=== PATIENT | male | born 1950 | race Caucasian/White ===

== ENCOUNTER 2019-02-18 00:23 | Day surgery (SDC) | payer MEDICARE ==
[~2019-02-18 00:23] MED LIST: ASPI81EC PO; CEPH500 PO; RXCLIN PO
[2019-02-19] MEDS ORDERED: [UNRECOGNIZED DRUG - OTHER] PO (15:40)
[2019-02-19] MEDS ORDERED: HYDR1TAB94 PO (15:40)
[2019-02-19] MEDS ORDERED: NAPR220 PO (15:41)
== END 2019-02-18 16:22 | disposition home or self-care (01) ==
LOC: ATC 00:23
DX: G06.2 Extradural and subdural abscess, unspecified (principal); A41.02 Sepsis due to Methicillin resistant Staphylococcus aureus; J18.9 Pneumonia, unspecified organism; D75.89 Other specified diseases of blood and blood-forming organs
CPT/HCPCS: 96365; J0878

== ENCOUNTER 2019-02-19 00:24 | Day surgery (SDC) | payer MEDICARE ==
[2019-02-19] MEDS ORDERED: [UNRECOGNIZED DRUG - OTHER] PO (15:40)
[2019-02-19] MEDS ORDERED: HYDR1TAB94 PO (15:40)
[2019-02-19] MEDS ORDERED: NAPR220 PO (15:41)
== END 2019-02-19 15:58 | disposition home or self-care (01) ==
LOC: ATC 00:24
DX: G06.2 Extradural and subdural abscess, unspecified (principal); B95.62 Methicillin resistant Staphylococcus aureus infection as the cause of diseases classified elsewhere; R78.81 Bacteremia; D75.89 Other specified diseases of blood and blood-forming organs
CPT/HCPCS: 96365; J0878

== ENCOUNTER 2019-02-20 02:00 | Day surgery (SDC) | payer MEDICARE ==
[~2019-02-20 02:00] MED LIST changes: +HYDR1TAB94 PO; +NAPR220 PO; +[UNRECOGNIZED DRUG - OTHER] PO
[2019-02-21] MEDS ORDERED: CUBICIN500 MG IV (15:46)
== END 2019-02-20 15:39 | disposition home or self-care (01) ==
LOC: ATC 02:00
DX: G06.2 Extradural and subdural abscess, unspecified (principal); B95.62 Methicillin resistant Staphylococcus aureus infection as the cause of diseases classified elsewhere; R78.81 Bacteremia; Z98.890 Other specified postprocedural states
CPT/HCPCS: 96365; J0878

== ENCOUNTER 2019-02-21 15:21 | Day surgery (SDC) | payer MEDICARE ==
[2019-02-21] MEDS ORDERED: CUBICIN500 MG IV (15:46)
== END 2019-02-21 16:16 | disposition home or self-care (01) ==
LOC: ATC 15:21
DX: G06.2 Extradural and subdural abscess, unspecified (principal); A41.02 Sepsis due to Methicillin resistant Staphylococcus aureus; J18.9 Pneumonia, unspecified organism; E87.1 Hypo-osmolality and hyponatremia; D75.89 Other specified diseases of blood and blood-forming organs
CPT/HCPCS: 96365; J0878

== ENCOUNTER 2019-02-22 08:44 | Day surgery (SDC) | payer MEDICARE ==
[~2019-02-22 08:44] MED LIST changes: +CUBICIN500 MG IV
== END 2019-02-22 10:21 | disposition home or self-care (01) ==
LOC: ATC 08:44
DX: G06.2 Extradural and subdural abscess, unspecified (principal); B95.62 Methicillin resistant Staphylococcus aureus infection as the cause of diseases classified elsewhere; R78.81 Bacteremia; Z79.899 Other long term (current) drug therapy
CPT/HCPCS: 96365; J0878

== ENCOUNTER 2019-02-23 00:11 | Day surgery (SDC) | payer MEDICARE | END 2019-02-23 14:48 | disposition home or self-care (01) | LOC: ATC 00:11 | DX: G06.2 Extradural and subdural abscess, unspecified (principal); A49.02 Methicillin resistant Staphylococcus aureus infection, unspecified site; D75.89 Other specified diseases of blood and blood-forming organs | CPT/HCPCS: 96365; J0878 ==

== ENCOUNTER 2019-02-24 00:22 | Day surgery (SDC) | payer MEDICARE ==
[2019-02-24 10:00] LABS: BASOPHILS PERCENT AUTO 2 % (0-2); EOSINOPHILS ABSOLUTE AUTO 0.44 K/mm3 (0.00-0.68); EOSINOPHILS PERCENT AUTO 7 % (0-6); Hematocrit 41.1 % (37.0-53.0); Hemoglobin 13.8 g/dL (13.5-17.5); IMMATURE GRAN ABSOLUTE AUTO 0.01 K/mm3 (0.00-0.10); IMMATURE GRAN PERCENT AUTO 0 % (0-1); LYMPHOCYTES ABSOLUTE AUTO 1.73 K/mm3 (0.84-5.20); LYMPHOCYTES PERCENT AUTO 29 % (21-46); MONOCYTES ABSOLUTE AUTO 0.55 K/mm3 (0.16-1.47); MONOCYTES PERCENT AUTO 9 % (4-13); Mean Corpuscular HGB 37.9 pg (26.0-34.0); Mean Corpuscular HGB Conc 33.6 g/dL (31.5-36.5); Mean Corpuscular Volume 113 fL (80-100); Mean Platelet Volume 10.4 fL (9.1-12.4); NEUTROPHILS ABSOLUTE AUTO 3.08 K/mm3 (1.96-9.15); NEUTROPHILS PERCENT AUTO 52 % (41-73); Platelet Count 271 K/mm3 (150-400); RDW Coefficient Variation 13.1 % (11.7-14.2); RDW Standard Deviation 55.1 fL (35.1-46.3); Red Blood Cell Count 3.64 M/mm3 (4.30-5.90); White Blood Cell Count 5.91 K/mm3 (4.00-11.30)
[2019-02-24 10:23] LABS: Alanine Aminotransfer (ALT/SGP 51 U/L (12-78); Albumin/Globulin Ratio 0.5 (0.8-1.8); Alk Phos 137 U/L (50-136); Anion Gap 5 mmol/L (6-16); Aspartate Aminotrans (AST/SGOT 56 U/L (12-37); Bilirubin, Total 0.8 mg/dL (0.1-1.0); Blood Urea Nitrogen 9 mg/dL (8-24); Bun/Creatinine Ratio 9.5 (12.0-20.0); CO2, Blood 25 mmol/L (21-32); CPK Creatine Kinase 30 U/L (39-308); Calcium, Blood 9.6 mg/dL (8.5-10.1); Chloride, Blood 111 mmol/L (98-108); Creatinine, Blood 0.95 mg/dL (0.60-1.20); Globulin, Blood 5.6 g/dL (2.2-4.0); Glomerular Filtration Rate >60 (60-); Glucose, Blood 117 mg/dL (70-99); Potassium, Blood 4.1 mmol/L (3.5-5.5); Sodium, Blood 141 mmol/L (136-145); Total Protein, Blood 8.6 g/dL (6.4-8.2)
== END 2019-02-24 10:16 | disposition home or self-care (01) ==
LOC: ATC 00:22
PROVIDERS: Internal Medicine Infectious Disease
DX: G06.2 Extradural and subdural abscess, unspecified (principal); B95.62 Methicillin resistant Staphylococcus aureus infection as the cause of diseases classified elsewhere; R78.81 Bacteremia; Z98.890 Other specified postprocedural states
CPT/HCPCS: 80053; 82550; 85025; 85651; 86140; 96365; J0878

== ENCOUNTER 2019-02-25 00:15 | Day surgery (SDC) | payer MEDICARE | END 2019-02-25 15:32 | disposition home or self-care (01) | LOC: ATC 00:15 | DX: G06.2 Extradural and subdural abscess, unspecified (principal); B95.62 Methicillin resistant Staphylococcus aureus infection as the cause of diseases classified elsewhere; R78.81 Bacteremia; Z79.899 Other long term (current) drug therapy | CPT/HCPCS: 96365; J0878 ==

== ENCOUNTER 2019-02-26 01:01 | Day surgery (SDC) | payer MEDICARE | END 2019-02-26 14:48 | disposition home or self-care (01) | LOC: ATC 01:01 | DX: G06.2 Extradural and subdural abscess, unspecified (principal); B95.62 Methicillin resistant Staphylococcus aureus infection as the cause of diseases classified elsewhere; R78.81 Bacteremia; E66.01 Morbid (severe) obesity due to excess calories; Z98.84 Bariatric surgery status | CPT/HCPCS: 96365; J0878 ==

== ENCOUNTER 2019-02-27 00:35 | Day surgery (SDC) | payer MEDICARE | END 2019-02-27 15:15 | disposition home or self-care (01) | LOC: ATC 00:35 | DX: G06.2 Extradural and subdural abscess, unspecified (principal); B95.62 Methicillin resistant Staphylococcus aureus infection as the cause of diseases classified elsewhere; R78.81 Bacteremia; E66.01 Morbid (severe) obesity due to excess calories; Z98.84 Bariatric surgery status | CPT/HCPCS: 96365; J0878 ==

== ENCOUNTER 2019-02-28 14:37 | Day surgery (SDC) | payer MEDICARE | END 2019-02-28 15:10 | disposition home or self-care (01) | LOC: ATC 14:37 | DX: G06.2 Extradural and subdural abscess, unspecified (principal); B95.62 Methicillin resistant Staphylococcus aureus infection as the cause of diseases classified elsewhere; R78.81 Bacteremia; E66.01 Morbid (severe) obesity due to excess calories; Z98.84 Bariatric surgery status | CPT/HCPCS: 96365; J0878 ==

== ENCOUNTER 2019-03-01 00:33 | Day surgery (SDC) | payer MEDICARE | END 2019-03-01 11:35 | disposition home or self-care (01) | LOC: ATC 00:33 | DX: G06.2 Extradural and subdural abscess, unspecified (principal); B95.62 Methicillin resistant Staphylococcus aureus infection as the cause of diseases classified elsewhere; R78.81 Bacteremia; E66.01 Morbid (severe) obesity due to excess calories; Z98.84 Bariatric surgery status | CPT/HCPCS: 96365; J0878 ==

== ENCOUNTER 2019-03-02 00:08 | Day surgery (SDC) | payer MEDICARE | END 2019-03-02 14:10 | disposition home or self-care (01) | LOC: ATC 00:08 | DX: G06.2 Extradural and subdural abscess, unspecified (principal); B95.62 Methicillin resistant Staphylococcus aureus infection as the cause of diseases classified elsewhere | CPT/HCPCS: 96365; J0878 ==

== ENCOUNTER 2019-03-03 00:21 | Day surgery (SDC) | payer MEDICARE ==
[2019-03-03 15:47] LABS: BASOPHILS ABSOLUTE AUTO 0.06 K/mm3 (0.00-0.23); BASOPHILS PERCENT AUTO 1 % (0-2); EOSINOPHILS ABSOLUTE AUTO 1.62 K/mm3 (0.00-0.68); EOSINOPHILS PERCENT AUTO 18 % (0-6); Hemoglobin 14.5 g/dL (13.5-17.5); IMMATURE GRAN ABSOLUTE AUTO 0.03 K/mm3 (0.00-0.10); IMMATURE GRAN PERCENT AUTO 0 % (0-1); LYMPHOCYTES ABSOLUTE AUTO 1.87 K/mm3 (0.84-5.20); LYMPHOCYTES PERCENT AUTO 21 % (21-46); MONOCYTES ABSOLUTE AUTO 0.69 K/mm3 (0.16-1.47); MONOCYTES PERCENT AUTO 8 % (4-13); Mean Corpuscular HGB 36.6 pg (26.0-34.0); Mean Corpuscular HGB Conc 33.7 g/dL (31.5-36.5); Mean Platelet Volume 10.9 fL (9.1-12.4); NEUTROPHILS PERCENT AUTO 52 % (41-73); Platelet Count 207 K/mm3 (150-400); RDW Coefficient Variation 13.2 % (11.7-14.2); RDW Standard Deviation 52.7 fL (35.1-46.3); Red Blood Cell Count 3.96 M/mm3 (4.30-5.90); White Blood Cell Count 8.97 K/mm3 (4.00-11.30)
[2019-03-03 15:54] LABS: Mean Corpuscular Volume 109 fL (80-100)
[2019-03-03 16:03] LABS: Alanine Aminotransfer (ALT/SGP 37 U/L (12-78); Albumin/Globulin Ratio 0.6 (0.8-1.8); Alk Phos 122 U/L (50-136); Anion Gap 6 mmol/L (6-16); Aspartate Aminotrans (AST/SGOT 39 U/L (12-37); Bilirubin, Total 0.5 mg/dL (0.1-1.0); Blood Urea Nitrogen 11 mg/dL (8-24); Bun/Creatinine Ratio 12.3 (12.0-20.0); CO2, Blood 24 mmol/L (21-32); CPK Creatine Kinase 37 U/L (39-308); Calcium, Blood 10.1 mg/dL (8.5-10.1); Chloride, Blood 107 mmol/L (98-108); Globulin, Blood 5.4 g/dL (2.2-4.0); Glomerular Filtration Rate >60 (60-); Glucose, Blood 186 mg/dL (70-99); Potassium, Blood 3.9 mmol/L (3.5-5.5); Sodium, Blood 137 mmol/L (136-145); Total Protein, Blood 8.4 g/dL (6.4-8.2)
== END 2019-03-03 15:00 | disposition home or self-care (01) ==
LOC: ATC 00:21
PROVIDERS: Internal Medicine Infectious Disease
DX: G06.2 Extradural and subdural abscess, unspecified (principal); B95.62 Methicillin resistant Staphylococcus aureus infection as the cause of diseases classified elsewhere; R78.81 Bacteremia; E66.01 Morbid (severe) obesity due to excess calories; Z98.84 Bariatric surgery status
CPT/HCPCS: 80053; 82550; 85025; 85651; 86140; 96365; J0878

== ENCOUNTER 2019-03-04 00:20 | Day surgery (SDC) | payer MEDICARE | END 2019-03-04 15:36 | disposition home or self-care (01) | LOC: ATC 00:20 | DX: G06.2 Extradural and subdural abscess, unspecified (principal); B95.62 Methicillin resistant Staphylococcus aureus infection as the cause of diseases classified elsewhere | CPT/HCPCS: 96365; J0878 ==

== ENCOUNTER 2019-03-05 00:25 | Day surgery (SDC) | payer MEDICARE | END 2019-03-05 10:16 | disposition home or self-care (01) | LOC: ATC 00:25 | DX: G06.2 Extradural and subdural abscess, unspecified (principal); B95.62 Methicillin resistant Staphylococcus aureus infection as the cause of diseases classified elsewhere; D75.89 Other specified diseases of blood and blood-forming organs | CPT/HCPCS: 96365; J0878 ==

== ENCOUNTER 2019-03-06 00:41 | Day surgery (SDC) | payer MEDICARE | END 2019-03-06 10:10 | disposition home or self-care (01) | LOC: ATC 00:41 | DX: G06.2 Extradural and subdural abscess, unspecified (principal); B95.62 Methicillin resistant Staphylococcus aureus infection as the cause of diseases classified elsewhere; R78.81 Bacteremia; Z79.899 Other long term (current) drug therapy; Z98.890 Other specified postprocedural states | CPT/HCPCS: 96365; J0878 ==

== ENCOUNTER 2019-03-07 09:32 | Day surgery (SDC) | payer MEDICARE | END 2019-03-07 09:53 | disposition home or self-care (01) | LOC: ATC 09:32 | DX: G06.2 Extradural and subdural abscess, unspecified (principal); R78.81 Bacteremia; B95.62 Methicillin resistant Staphylococcus aureus infection as the cause of diseases classified elsewhere; Z79.899 Other long term (current) drug therapy | CPT/HCPCS: 96365; J0878 ==

== ENCOUNTER 2019-03-08 09:19 | Day surgery (SDC) | payer MEDICARE | END 2019-03-08 09:48 | disposition home or self-care (01) | LOC: ATC 09:19 | DX: G06.2 Extradural and subdural abscess, unspecified (principal); B95.62 Methicillin resistant Staphylococcus aureus infection as the cause of diseases classified elsewhere; R78.81 Bacteremia; Z79.899 Other long term (current) drug therapy | CPT/HCPCS: 96365; J0878 ==

== ENCOUNTER 2019-03-09 00:11 | Day surgery (SDC) | payer MEDICARE | END 2019-03-09 10:10 | disposition home or self-care (01) | LOC: ATC 00:11 | DX: G06.2 Extradural and subdural abscess, unspecified (principal); B95.62 Methicillin resistant Staphylococcus aureus infection as the cause of diseases classified elsewhere; D75.89 Other specified diseases of blood and blood-forming organs | CPT/HCPCS: 96365; J0878 ==

== ENCOUNTER 2019-03-10 00:02 | Day surgery (SDC) | payer MEDICARE ==
[2019-03-10 08:49] LABS: BASOPHILS ABSOLUTE AUTO 0.11 K/mm3 (0.00-0.23); BASOPHILS PERCENT AUTO 1 % (0-2); EOSINOPHILS ABSOLUTE AUTO 0.57 K/mm3 (0.00-0.68); EOSINOPHILS PERCENT AUTO 8 % (0-6); Hematocrit 41.9 % (37.0-53.0); Hemoglobin 14.1 g/dL (13.5-17.5); IMMATURE GRAN ABSOLUTE AUTO 0.02 K/mm3 (0.00-0.10); IMMATURE GRAN PERCENT AUTO 0 % (0-1); LYMPHOCYTES ABSOLUTE AUTO 1.68 K/mm3 (0.84-5.20); LYMPHOCYTES PERCENT AUTO 22 % (21-46); MONOCYTES ABSOLUTE AUTO 0.71 K/mm3 (0.16-1.47); MONOCYTES PERCENT AUTO 9 % (4-13); Mean Corpuscular HGB 35.9 pg (26.0-34.0); Mean Corpuscular HGB Conc 33.7 g/dL (31.5-36.5); Mean Corpuscular Volume 107 fL (80-100); Mean Platelet Volume 10.7 fL (9.1-12.4); NEUTROPHILS ABSOLUTE AUTO 4.52 K/mm3 (1.96-9.15); NEUTROPHILS PERCENT AUTO 59 % (41-73); Platelet Count 197 K/mm3 (150-400); RDW Coefficient Variation 12.9 % (11.7-14.2); RDW Standard Deviation 51.3 fL (35.1-46.3); Red Blood Cell Count 3.93 M/mm3 (4.30-5.90); White Blood Cell Count 7.61 K/mm3 (4.00-11.30)
[2019-03-10 09:08] LABS: Alanine Aminotransfer (ALT/SGP 44 U/L (12-78); Albumin/Globulin Ratio 0.6 (0.8-1.8); Alk Phos 114 U/L (50-136); Anion Gap 5 mmol/L (6-16); Aspartate Aminotrans (AST/SGOT 50 U/L (12-37); Bilirubin, Total 0.6 mg/dL (0.1-1.0); Blood Urea Nitrogen 10 mg/dL (8-24); Bun/Creatinine Ratio 11.1 (12.0-20.0); C-REACTIVE PROTEIN, EXT RANGE 0.902 mg/dL (0.000-0.300); CO2, Blood 25 mmol/L (21-32); CPK Creatine Kinase 45 U/L (39-308); Calcium, Blood 9.8 mg/dL (8.5-10.1); Chloride, Blood 109 mmol/L (98-108); Globulin, Blood 5.3 g/dL (2.2-4.0); Glomerular Filtration Rate >60 (60-); Glucose, Blood 128 mg/dL (70-99); Sodium, Blood 139 mmol/L (136-145); Total Protein, Blood 8.3 g/dL (6.4-8.2)
== END 2019-03-10 09:21 | disposition home or self-care (01) ==
LOC: ATC 00:02
PROVIDERS: Internal Medicine Infectious Disease
DX: G06.2 Extradural and subdural abscess, unspecified (principal); B95.62 Methicillin resistant Staphylococcus aureus infection as the cause of diseases classified elsewhere; Z79.899 Other long term (current) drug therapy
CPT/HCPCS: 80053; 82550; 85025; 85651; 86140; 96365; J0878

== ENCOUNTER 2019-03-11 00:02 | Day surgery (SDC) | payer MEDICARE | END 2019-03-11 09:31 | disposition home or self-care (01) | LOC: ATC 00:02 | DX: G06.2 Extradural and subdural abscess, unspecified (principal); B95.62 Methicillin resistant Staphylococcus aureus infection as the cause of diseases classified elsewhere; D75.89 Other specified diseases of blood and blood-forming organs | CPT/HCPCS: 96365; J0878 ==

== ENCOUNTER 2019-03-12 00:01 | Day surgery (SDC) | payer MEDICARE | END 2019-03-12 08:32 | disposition home or self-care (01) | LOC: ATC 00:01 | DX: G06.2 Extradural and subdural abscess, unspecified (principal); B95.62 Methicillin resistant Staphylococcus aureus infection as the cause of diseases classified elsewhere; D75.89 Other specified diseases of blood and blood-forming organs | CPT/HCPCS: 96365; J0878 ==

== ENCOUNTER 2019-03-13 01:04 | Day surgery (SDC) | payer MEDICARE | END 2019-03-13 09:08 | disposition home or self-care (01) | LOC: ATC 01:04 | DX: G06.2 Extradural and subdural abscess, unspecified (principal); B95.62 Methicillin resistant Staphylococcus aureus infection as the cause of diseases classified elsewhere; R78.81 Bacteremia; Z79.899 Other long term (current) drug therapy | CPT/HCPCS: 96365; J0878 ==

== ENCOUNTER 2019-03-14 07:39 | Day surgery (SDC) | payer MEDICARE | END 2019-03-14 09:10 | disposition home or self-care (01) | LOC: ATC 07:39 | DX: G06.2 Extradural and subdural abscess, unspecified (principal); B95.62 Methicillin resistant Staphylococcus aureus infection as the cause of diseases classified elsewhere; R78.81 Bacteremia; D64.9 Anemia, unspecified; Z79.899 Other long term (current) drug therapy; Z98.890 Other specified postprocedural states | CPT/HCPCS: 96365; J0878 ==

== ENCOUNTER 2019-03-15 00:29 | Day surgery (SDC) | payer MEDICARE | END 2019-03-15 08:41 | disposition home or self-care (01) | LOC: ATC 00:29 | DX: G06.2 Extradural and subdural abscess, unspecified (principal); B95.62 Methicillin resistant Staphylococcus aureus infection as the cause of diseases classified elsewhere; R78.81 Bacteremia; D64.9 Anemia, unspecified; Z79.899 Other long term (current) drug therapy | CPT/HCPCS: 96365; J0878 ==

== ENCOUNTER 2019-03-16 00:10 | Day surgery (SDC) | payer MEDICARE | END 2019-03-16 08:34 | disposition home or self-care (01) | LOC: ATC 00:10 | DX: G06.2 Extradural and subdural abscess, unspecified (principal); B95.62 Methicillin resistant Staphylococcus aureus infection as the cause of diseases classified elsewhere; D75.89 Other specified diseases of blood and blood-forming organs | CPT/HCPCS: 96365; J0878 ==

== ENCOUNTER 2019-03-17 00:10 | Day surgery (SDC) | payer MEDICARE | END 2019-03-17 09:08 | disposition home or self-care (01) | LOC: ATC 00:10 | DX: G06.2 Extradural and subdural abscess, unspecified (principal); B95.62 Methicillin resistant Staphylococcus aureus infection as the cause of diseases classified elsewhere; D64.9 Anemia, unspecified; Z79.899 Other long term (current) drug therapy; Z79.52 Long term (current) use of systemic steroids | CPT/HCPCS: 96365; J0878 ==

== ENCOUNTER 2019-03-18 00:03 | Day surgery (SDC) | payer MEDICARE ==
[2019-03-18 09:26] LABS: BASOPHILS ABSOLUTE AUTO 0.08 K/mm3 (0.00-0.23); BASOPHILS PERCENT AUTO 1 % (0-2); EOSINOPHILS ABSOLUTE AUTO 0.44 K/mm3 (0.00-0.68); EOSINOPHILS PERCENT AUTO 7 % (0-6); IMMATURE GRAN ABSOLUTE AUTO 0.01 K/mm3 (0.00-0.10); IMMATURE GRAN PERCENT AUTO 0 % (0-1); LYMPHOCYTES ABSOLUTE AUTO 1.61 K/mm3 (0.84-5.20); LYMPHOCYTES PERCENT AUTO 26 % (21-46); MONOCYTES ABSOLUTE AUTO 0.65 K/mm3 (0.16-1.47); MONOCYTES PERCENT AUTO 10 % (4-13); Mean Corpuscular HGB 35.5 pg (26.0-34.0); Mean Corpuscular HGB Conc 33.3 g/dL (31.5-36.5); Mean Corpuscular Volume 107 fL (80-100); Mean Platelet Volume 10.5 fL (9.1-12.4); NEUTROPHILS ABSOLUTE AUTO 3.51 K/mm3 (1.96-9.15); NEUTROPHILS PERCENT AUTO 56 % (41-73); Platelet Count 198 K/mm3 (150-400); RDW Coefficient Variation 13.1 % (11.7-14.2); RDW Standard Deviation 51.9 fL (35.1-46.3); Red Blood Cell Count 3.94 M/mm3 (4.30-5.90)
[2019-03-18 09:49] LABS: Alanine Aminotransfer (ALT/SGP 39 U/L (12-78); Albumin, Blood 3.1 g/dL (3.4-5.0); Albumin/Globulin Ratio 0.6 (0.8-1.8); Alk Phos 94 U/L (50-136); Anion Gap 4 mmol/L (6-16); Aspartate Aminotrans (AST/SGOT 45 U/L (12-37); Bilirubin, Total 0.5 mg/dL (0.1-1.0); Blood Urea Nitrogen 10 mg/dL (8-24); Bun/Creatinine Ratio 12.4 (12.0-20.0); CO2, Blood 25 mmol/L (21-32); CPK Creatine Kinase 42 U/L (39-308); Calcium, Blood 9.8 mg/dL (8.5-10.1); Chloride, Blood 110 mmol/L (98-108); Creatinine, Blood 0.81 mg/dL (0.60-1.20); Globulin, Blood 4.9 g/dL (2.2-4.0); Glomerular Filtration Rate >60 (60-); Glucose, Blood 111 mg/dL (70-99); Potassium, Blood 4.1 mmol/L (3.5-5.5); Sodium, Blood 139 mmol/L (136-145)
== END 2019-03-18 08:52 | disposition home or self-care (01) ==
LOC: ATC 00:03
PROVIDERS: Internal Medicine Infectious Disease
DX: G06.1 Intraspinal abscess and granuloma (principal); B95.62 Methicillin resistant Staphylococcus aureus infection as the cause of diseases classified elsewhere; D75.89 Other specified diseases of blood and blood-forming organs
CPT/HCPCS: 80053; 82550; 85025; 85651; 86140; 96365; J0878

== ENCOUNTER 2019-03-19 00:02 | Day surgery (SDC) | payer MEDICARE | END 2019-03-19 08:54 | disposition home or self-care (01) | LOC: ATC 00:02 | DX: G06.2 Extradural and subdural abscess, unspecified (principal); B95.62 Methicillin resistant Staphylococcus aureus infection as the cause of diseases classified elsewhere; R78.81 Bacteremia; D64.9 Anemia, unspecified; Z87.01 Personal history of pneumonia (recurrent); Z98.890 Other specified postprocedural states; Z79.899 Other long term (current) drug therapy | CPT/HCPCS: 96365; J0878 ==

== ENCOUNTER 2019-03-20 00:07 | Day surgery (SDC) | payer MEDICARE | END 2019-03-20 08:25 | disposition home or self-care (01) | LOC: ATC 00:07 | DX: G06.2 Extradural and subdural abscess, unspecified (principal); B95.62 Methicillin resistant Staphylococcus aureus infection as the cause of diseases classified elsewhere; R78.81 Bacteremia; D75.89 Other specified diseases of blood and blood-forming organs; Z87.01 Personal history of pneumonia (recurrent); Z79.899 Other long term (current) drug therapy; Z98.890 Other specified postprocedural states | CPT/HCPCS: 96365; J0878 ==

== ENCOUNTER 2019-03-21 00:55 | Day surgery (SDC) | payer MEDICARE | END 2019-03-21 08:42 | disposition home or self-care (01) | LOC: ATC 00:55 | DX: G06.2 Extradural and subdural abscess, unspecified (principal); B95.62 Methicillin resistant Staphylococcus aureus infection as the cause of diseases classified elsewhere; Z98.890 Other specified postprocedural states; Z79.899 Other long term (current) drug therapy | CPT/HCPCS: 96365; J0878 ==

== ENCOUNTER 2019-03-22 00:58 | Day surgery (SDC) | payer MEDICARE | END 2019-03-22 22:37 | disposition home or self-care (01) | LOC: ATC 00:58 | DX: G06.2 Extradural and subdural abscess, unspecified (principal); B95.62 Methicillin resistant Staphylococcus aureus infection as the cause of diseases classified elsewhere; Z98.890 Other specified postprocedural states; Z79.899 Other long term (current) drug therapy | CPT/HCPCS: 96365; J0878 ==

== ENCOUNTER 2019-03-27 00:27 | Day surgery (SDC) | payer MEDICARE | END 2019-03-27 08:20 | disposition home or self-care (01) | LOC: ATC 00:27 | DX: G06.2 Extradural and subdural abscess, unspecified (principal); B95.62 Methicillin resistant Staphylococcus aureus infection as the cause of diseases classified elsewhere; Z79.899 Other long term (current) drug therapy; Z79.82 Long term (current) use of aspirin | CPT/HCPCS: 99211 ==

== ENCOUNTER 2020-11-19 09:06 | Emergency (ER) | payer MEDICARE ==
[~2020-11-19] VITALS: Ht 180.3 cm; Wt 105.2 kg
[2020-11-19 09:50] LABS: BASOPHILS ABSOLUTE AUTO 0.07 K/mm3 (0.00-0.23); BASOPHILS PERCENT AUTO 1 % (0-2); EOSINOPHILS ABSOLUTE AUTO 0.11 K/mm3 (0.00-0.68); EOSINOPHILS PERCENT AUTO 1 % (0-6); Hematocrit 38.9 % (37.0-53.0); Hemoglobin 13.3 g/dL (13.5-17.5); IMMATURE GRAN ABSOLUTE AUTO 0.03 K/mm3 (0.00-0.10); IMMATURE GRAN PERCENT AUTO 0 % (0-1); LYMPHOCYTES ABSOLUTE AUTO 1.35 K/mm3 (0.84-5.20); LYMPHOCYTES PERCENT AUTO 13 % (21-46); MONOCYTES ABSOLUTE AUTO 1.34 K/mm3 (0.16-1.47); MONOCYTES PERCENT AUTO 13 % (4-13); Mean Corpuscular HGB 40.8 pg (26.0-34.0); Mean Corpuscular HGB Conc 34.2 g/dL (31.5-36.5); Mean Corpuscular Volume 119 fL (80-100); Mean Platelet Volume 10.9 fL (9.1-12.4); NEUTROPHILS ABSOLUTE AUTO 7.86 K/mm3 (1.96-9.15); NEUTROPHILS PERCENT AUTO 73 % (41-73); Platelet Count 148 K/mm3 (150-400); RDW Coefficient Variation 15.5 % (11.7-14.2); Red Blood Cell Count 3.26 M/mm3 (4.30-5.90); White Blood Cell Count 10.76 K/mm3 (4.00-11.30)
[2020-11-19 09:53] LABS: Source, Urine Clean Catch
[2020-11-19 10:01] LABS: Appearance, Urine Clear (Clear); Blood, Urine Neg (Neg); Color, Urine Amber (P-Yellow); Glucose Qualitative, Urine Neg (Neg); Ketones, Urine 1+ (Neg); Leukocyte Esterase, Urine 1+ (Neg); Nitrite, Urine Pos (Neg); Protein, Urine 1+ (Neg); Specific Gravity, Urine 1.025 (1.003-1.022); Urobilinogen, Urine 3+ (Normal)
[2020-11-19 10:13] LABS: Alanine Aminotransfer (ALT/SGP 45 U/L (12-78); Albumin, Blood 2.1 g/dL (3.4-5.0); Albumin/Globulin Ratio 0.4 (0.8-1.8); Alk Phos 116 U/L (50-136); Anion Gap 5 mmol/L (6-16); Aspartate Aminotrans (AST/SGOT 76 U/L (12-37); Bilirubin, Total 5.3 mg/dL (0.1-1.0); Blood Urea Nitrogen 10 mg/dL (8-24); CO2, Blood 26 mmol/L (21-32); CPK Creatine Kinase 77 U/L (39-308); Calcium, Blood 8.7 mg/dL (8.5-10.1); Chloride, Blood 108 mmol/L (98-108); Creatine Kinase MB 2.3 ng/mL (0.0-3.6); Creatinine, Blood 0.77 mg/dL (0.60-1.20); Globulin, Blood 5.3 g/dL (2.2-4.0); Glomerular Filtration Rate >60 (60-); Glucose, Blood 144 mg/dL (70-99); Potassium, Blood 3.4 mmol/L (3.5-5.5); Sodium, Blood 139 mmol/L (136-145); Total Protein, Blood 7.4 g/dL (6.4-8.2); Troponin I <0.015 ng/mL (0.000-0.040)
[2020-11-19 10:25] LABS: Bilirubin, Urine 2+ (Neg)
[2020-11-19 10:26] LABS: Bacteria Few /hpf; Mucus Light (0-Heavy); Red Blood Cells, Urine 0-2 /hpf (0-2); Squamous Epithelial Cells Rare /hpf (Few)
[2020-11-19] MEDS ORDERED: MUPIROCIN15 GM TOP (11:56)
[2020-11-19] MEDS ORDERED: SULTRIDS PO (11:56)
[2020-11-22] MEDS ORDERED: Lasix20 MG PO (17:08)
[2020-12-26] MEDS ORDERED: ALDACTONE100 MG PO (23:01)
[2020-12-27] MEDS ORDERED: Kristalose20 GM PO (01:07)
== END 2020-11-19 12:30 | disposition home or self-care (01) ==
LOC: ER 09:06
PROVIDERS: Physician Assistant
DX: N39.0 Urinary tract infection, site not specified (principal); L73.9 Follicular disorder, unspecified; B95.61 Methicillin susceptible Staphylococcus aureus infection as the cause of diseases classified elsewhere; Z79.899 Other long term (current) drug therapy; Z79.82 Long term (current) use of aspirin
CPT/HCPCS: 36415; 71046; 80053; 81001; 82550; 82553; 83880; 84484; 85025; 87086; 93005; 93010; 99284-25; A9270; J7030

== ENCOUNTER 2020-11-24 16:26 | Inpatient (IN) | payer MEDICARE ==
[~2020-11-24] VITALS: Ht 177.8 cm; Wt 103.4 kg
[~2020-11-24 16:26] MED LIST changes: +Lasix20 MG PO; +MUPIROCIN15 GM TOP; +SULTRIDS PO
[2020-11-24 17:47] LABS: BASOPHILS ABSOLUTE AUTO 0.06 K/mm3 (0.00-0.23); BASOPHILS PERCENT AUTO 1 % (0-2); EOSINOPHILS ABSOLUTE AUTO 0.15 K/mm3 (0.00-0.68); EOSINOPHILS PERCENT AUTO 1 % (0-6); Hematocrit 27.7 % (37.0-53.0); Hemoglobin 9.7 g/dL (13.5-17.5); IMMATURE GRAN ABSOLUTE AUTO 0.05 K/mm3 (0.00-0.10); IMMATURE GRAN PERCENT AUTO 0 % (0-1); LYMPHOCYTES ABSOLUTE AUTO 1.55 K/mm3 (0.84-5.20); LYMPHOCYTES PERCENT AUTO 14 % (21-46); MONOCYTES ABSOLUTE AUTO 1.04 K/mm3 (0.16-1.47); MONOCYTES PERCENT AUTO 9 % (4-13); Mean Corpuscular HGB 41.3 pg (26.0-34.0); Mean Corpuscular Volume 118 fL (80-100); Mean Platelet Volume 11.4 fL (9.1-12.4); NEUTROPHILS ABSOLUTE AUTO 8.35 K/mm3 (1.96-9.15); NEUTROPHILS PERCENT AUTO 75 % (41-73); Platelet Count 178 K/mm3 (150-400); RDW Coefficient Variation 15.3 % (11.7-14.2); RDW Standard Deviation 66.1 fL (35.1-46.3); Red Blood Cell Count 2.35 M/mm3 (4.30-5.90)
[2020-11-24 17:59] LABS: Alanine Aminotransfer (ALT/SGP 33 U/L (12-78); Albumin, Blood 1.9 g/dL (3.4-5.0); Albumin/Globulin Ratio 0.4 (0.8-1.8); Alk Phos 99 U/L (50-136); Anion Gap 8 mmol/L (6-16); Aspartate Aminotrans (AST/SGOT 57 U/L (12-37); Bilirubin, Total 3.4 mg/dL (0.1-1.0); Blood Urea Nitrogen 31 mg/dL (8-24); Bun/Creatinine Ratio 30.1 (12.0-20.0); CO2, Blood 24 mmol/L (21-32); Calcium, Blood 8.4 mg/dL (8.5-10.1); Chloride, Blood 105 mmol/L (98-108); Creatinine, Blood 1.03 mg/dL (0.60-1.20); Globulin, Blood 4.7 g/dL (2.2-4.0); Glomerular Filtration Rate >60 (60-); Glucose, Blood 165 mg/dL (70-99); Potassium, Blood 3.7 mmol/L (3.5-5.5); Sodium, Blood 137 mmol/L (136-145); Total Protein, Blood 6.6 g/dL (6.4-8.2); Troponin I <0.015 ng/mL (0.000-0.040)
[2020-11-24 21:14] LABS: Percent Saturation 87.6 % (20.0-50.0)
[2020-11-24] MEDS ORDERED: BACTRIM DS TAB1 EAC6 PO (21:47)
[2020-11-25 00:34] LABS: Source, Urine Catheter
[2020-11-25 00:38] LABS: Bilirubin, Urine Neg (Neg); Blood, Urine 3+ (Neg); Glucose Qualitative, Urine Neg (Neg); Ketones, Urine Neg (Neg); Leukocyte Esterase, Urine Neg (Neg); Nitrite, Urine Neg (Neg); Protein, Urine Neg (Neg); Urobilinogen, Urine 1+ (Normal)
[2020-11-25 00:43] LABS: Appearance, Urine Clear (Clear); Color, Urine Yellow (P-Yellow)
[2020-11-25 00:45] LABS: Bacteria Rare /hpf; Squamous Epithelial Cells Not Seen /hpf (Few); White Blood Cells, Urine Rare /hpf (0-5)
[2020-11-25 05:02] LABS: Hematocrit 24.1 % (37.0-53.0); Hemoglobin 8.5 g/dL (13.5-17.5); Mean Corpuscular HGB 41.5 pg (26.0-34.0); Mean Corpuscular HGB Conc 35.3 g/dL (31.5-36.5); Mean Corpuscular Volume 118 fL (80-100); Mean Platelet Volume 11.3 fL (9.1-12.4); Platelet Count 152 K/mm3 (150-400); RDW Coefficient Variation 15.3 % (11.7-14.2); RDW Standard Deviation 65.5 fL (35.1-46.3); Red Blood Cell Count 2.05 M/mm3 (4.30-5.90); White Blood Cell Count 9.54 K/mm3 (4.00-11.30)
--- NOTE | 2020-11-25 05:12 | NUR ---
SHIFT SUMMARY- PT. NEW ADMISSION FROM ED. A&O, WEAK WITH UNSTEADY GAIT. AMBULATED TO THE BED W/SBA. ORIENTED TO NURSING STAFF AND ROOM. PT. NOTED TO HAVE BLE EDEMA AND ABDOMINAL DISTENTION. PT. DIURESED DURING THE NIGHT, WITH MINIMAL VOID. BLADDER SCAN DONE WITH RESULT OF 700. HOSPITALIST NOTIFIED. RECEIVED ORDER FOR MACE CATHETER PLACEMENT. MACE PLACED, PATENT, AND DRAINING. PT. WITH GOOD OUTPUT T/O THE NIGHT. PT. INCONT OF BOWEL, ATTENDS IN PLACE. PT. DENIED PAIN OR DISCOMFORT T/O THE NIGHT. SLEPT WELL, VSS. CALL LIGHT WITHIN REACH, SIDE RAILS UPX2, AND BED ALARM ON FOR SAFETY. WILL CONT TO MONITOR.
[2020-11-25 05:29] LABS: Alanine Aminotransfer (ALT/SGP 30 U/L (12-78); Albumin, Blood 1.7 g/dL (3.4-5.0); Albumin/Globulin Ratio 0.4 (0.8-1.8); Alk Phos 87 U/L (50-136); Anion Gap 5 mmol/L (6-16); Aspartate Aminotrans (AST/SGOT 56 U/L (12-37); Bilirubin, Total 3.2 mg/dL (0.1-1.0); Blood Urea Nitrogen 33 mg/dL (8-24); Bun/Creatinine Ratio 30.8 (12.0-20.0); CO2, Blood 27 mmol/L (21-32); Calcium, Blood 7.9 mg/dL (8.5-10.1); Chloride, Blood 106 mmol/L (98-108); Creatinine, Blood 1.07 mg/dL (0.60-1.20); Globulin, Blood 4.1 g/dL (2.2-4.0); Glomerular Filtration Rate >60 (60-); Glucose, Blood 132 mg/dL (70-99); Potassium, Blood 3.7 mmol/L (3.5-5.5); Sodium, Blood 138 mmol/L (136-145); Total Protein, Blood 5.8 g/dL (6.4-8.2)
--- NOTE | 2020-11-25 10:10 | NUR ---
0915 TELE CALLED PT IS HAVING SINUS WITH MANY PVC'S ABOUT [address] MSG TO [address] LOPEZ, PEND ORDRS. PT SITTING IN BED, EATING. 0940 PT HEART SETTLED DOWN PER TELE. NOW RATE 100 TO 1-TEENS. ABOUT 4 PVC PER MIN. EKG ORDERED BY DR LOPEZ. [facility] IN TO DO EKG.
--- NOTE | 2020-11-25 10:20 | NUR ---
CALLED DR LOPEZ RE EKG RESULTS NO ORDRES
--- NOTE | 2020-11-25 10:23 | NUR ---
DR LOPEZ STATES WILL ORDER U/S GUIDED PARACENTISIS
--- NOTE | 2020-11-25 12:06 | NUR ---
U/SOUND SCHEDULED FOR TOMORROW HOPEFUL FOR AM. HOLD EVENING LOVENOX. DR NOTIFIED.
--- NOTE | 2020-11-25 16:41 | NUR ---
TELE CALLED. STATES CONVERTED TO AFIB. RATE AVG 115-120. @7 PVC'S PER MIN. PRESENTS SOMEWHAT SLOWER MENTATION, BUT IS STILL A/O. TALKING. IS WORKING SOME HARDER TO BREATHE. RESP 16-18. BP 126/62 T 97.2 O2 95% R/AIR. CALLED DR LOPEZ. WILL PLACE ORERS FOR METOPROLOL IF SUSTAINS H/R. CONTINUE TO MONITOR.
--- NOTE | 2020-11-25 17:51 | NUR ---
PT PLEASANT COOP TODAY. SOME PAIN , MOSTLY IN BACK, SOME GENERALIZED. ABD UNCOMFORTABLE. APPEARS SOME LARGER THAN THIS AM. VSS. TELE REPORTING CONVERTED TO AFIB THIS AFT. CONVERTED BACK RECENTLY TO NSR WITH PACS RATE 85. PT SITTING UP EATING DINNER AT THIS TIME. DISCUSSED WITH DR LOPEZ THIS AFT. STARTED CWA;S THIS DEREK. NOW AT A 1 FOR LIGHT SWEATING. STATES ONLY 2 BEERS, LARGE, DAILY. FIRST STATED NOT FOR 6 DAYS. THEN AGREED DID HAVE DRINK YEST. BED IN LOW POSITION, CALL LITE IN REACH. BED ALARM ON FOR SAFETY.
[2020-11-26 04:58] LABS: BASOPHILS ABSOLUTE AUTO 0.06 K/mm3 (0.00-0.23); BASOPHILS PERCENT AUTO 1 % (0-2); EOSINOPHILS ABSOLUTE AUTO 0.28 K/mm3 (0.00-0.68); EOSINOPHILS PERCENT AUTO 4 % (0-6); Hematocrit 22.8 % (37.0-53.0); Hemoglobin 7.8 g/dL (13.5-17.5); IMMATURE GRAN ABSOLUTE AUTO 0.03 K/mm3 (0.00-0.10); IMMATURE GRAN PERCENT AUTO 0 % (0-1); LYMPHOCYTES PERCENT AUTO 21 % (21-46); MONOCYTES ABSOLUTE AUTO 0.73 K/mm3 (0.16-1.47); MONOCYTES PERCENT AUTO 9 % (4-13); Mean Corpuscular HGB 41.1 pg (26.0-34.0); Mean Corpuscular HGB Conc 34.2 g/dL (31.5-36.5); Mean Corpuscular Volume 120 fL (80-100); Mean Platelet Volume 11.2 fL (9.1-12.4); NEUTROPHILS ABSOLUTE AUTO 5.21 K/mm3 (1.96-9.15); NEUTROPHILS PERCENT AUTO 65 % (41-73); Platelet Count 154 K/mm3 (150-400); RDW Coefficient Variation 15.9 % (11.7-14.2); White Blood Cell Count 8.01 K/mm3 (4.00-11.30)
[2020-11-26 05:11] LABS: International Normalized Ratio 1.42
[2020-11-26 05:20] LABS: Albumin, Blood 1.8 g/dL (3.4-5.0); Anion Gap 6 mmol/L (6-16); Blood Urea Nitrogen 32 mg/dL (8-24); Bun/Creatinine Ratio 29.9 (12.0-20.0); CO2, Blood 27 mmol/L (21-32); Calcium, Blood 8.2 mg/dL (8.5-10.1); Chloride, Blood 108 mmol/L (98-108); Creatinine, Blood 1.07 mg/dL (0.60-1.20); Glomerular Filtration Rate >60 (60-); Glucose, Blood 123 mg/dL (70-99); Phosphorus, Blood 2.6 mg/dL (2.5-4.9); Potassium, Blood 3.3 mmol/L (3.5-5.5); Sodium, Blood 141 mmol/L (136-145)
[2020-11-26 10:11] LABS: Automated BF WBC Count 0.221 K/mm3 (0-999); Body Fluid WBC Count 221 /mm3 (0-999)
[2020-11-26 10:33] LABS: Glucose, Body Fluid 134 mg/dL
[2020-11-26 10:34] LABS: Lactate Dehydrogenase, Body Fl 32 U/L
[2020-11-26 10:50] LABS: Albumin, Body Fluid 0.4 g/dL
[2020-11-26 11:03] LABS: RBC Count, Body Fluid 92 /mm3 (0-0)
[2020-11-26 11:04] LABS: Color, Body Fluid L Yellow (None-Yellow)
[2020-11-26 11:05] LABS: Appearance, Body Fluid Clear (Clear)
[2020-11-26 11:39] LABS: Total Cell Count, Body Fluid 100
[2020-11-26 13:21] LABS: Hematocrit 23.7 % (37.0-53.0); Hemoglobin 8.1 g/dL (13.5-17.5)
[2020-11-26 14:45] LABS: Percent Saturation 31.2 % (20.0-50.0)
--- NOTE | 2020-11-26 17:00 | NUR ---
SHIFT SUMMARY: S/P U/S GUIDED PARACENTESIS THSI MORNING, 3 LITERS FLUID REMOVED, TOLERATED WELL, VSS. NO BM YET TODAY, SPECIMEN COLLECTION PENDING. NO EVENTS ON TELEMETRY, AFIB 90-100'S. PITTING EDEMA TO BLE. AFTER PROCEDURE, PT STATED THAT HE FELT MUCH BETTER. CIWA SCORES < 8, STATED HE DOESN'T DRINK MUCH. IS FORGETFUL, HAS SLOWER THOUGHT PROCESS. ABX DELAYED D/T LOSS OF IV ACCESS, POWERGLIDE PLACED IN LATE AFTERNOON. HAD VISIT FROM COUSIN.
[2020-11-27 04:51] LABS: BASOPHILS ABSOLUTE AUTO 0.06 K/mm3 (0.00-0.23); BASOPHILS PERCENT AUTO 1 % (0-2); EOSINOPHILS ABSOLUTE AUTO 0.22 K/mm3 (0.00-0.68); EOSINOPHILS PERCENT AUTO 3 % (0-6); Hematocrit 20.8 % (37.0-53.0); Hemoglobin 7.1 g/dL (13.5-17.5); Mean Corpuscular HGB 41.3 pg (26.0-34.0); Mean Corpuscular HGB Conc 34.1 g/dL (31.5-36.5); Mean Corpuscular Volume 121 fL (80-100); Mean Platelet Volume 11.1 fL (9.1-12.4); Platelet Count 141 K/mm3 (150-400); RDW Coefficient Variation 16.2 % (11.7-14.2); Red Blood Cell Count 1.72 M/mm3 (4.30-5.90); White Blood Cell Count 7.51 K/mm3 (4.00-11.30)
[2020-11-27 05:05] LABS: IMMATURE GRAN ABSOLUTE AUTO 0.03 K/mm3 (0.00-0.10); IMMATURE GRAN PERCENT AUTO 0 % (0-1); LYMPHOCYTES ABSOLUTE AUTO 2.15 K/mm3 (0.84-5.20); LYMPHOCYTES PERCENT AUTO 29 % (21-46); MONOCYTES ABSOLUTE AUTO 0.83 K/mm3 (0.16-1.47); MONOCYTES PERCENT AUTO 11 % (4-13); NEUTROPHILS ABSOLUTE AUTO 4.22 K/mm3 (1.96-9.15); NEUTROPHILS PERCENT AUTO 56 % (41-73)
[2020-11-27 05:16] LABS: Albumin, Blood 1.9 g/dL (3.4-5.0); Anion Gap 3 mmol/L (6-16); Blood Urea Nitrogen 22 mg/dL (8-24); Bun/Creatinine Ratio 20.6 (12.0-20.0); CO2, Blood 27 mmol/L (21-32); Calcium, Blood 8.6 mg/dL (8.5-10.1); Chloride, Blood 111 mmol/L (98-108); Creatinine, Blood 1.07 mg/dL (0.60-1.20); Glomerular Filtration Rate >60 (60-); Glucose, Blood 107 mg/dL (70-99); Phosphorus, Blood 2.5 mg/dL (2.5-4.9); Potassium, Blood 3.2 mmol/L (3.5-5.5); Sodium, Blood 141 mmol/L (136-145)
--- NOTE | 2020-11-27 05:56 | NUR ---
SHIFT SUMMARY: AOX3, COOPERATIVE. VERY FORGETUL AT TIMES. BUT HAS DOWN WELL MAKING HIS NEEDS KNOWN. MEDICATED FOR PAIN X1. SLEPT WELL AFTER THAT. HAS BEEN URINATING WELL WITH URINAL. ABDOMIN DISTENDED AND ROUND. PASSING FLATUS. NO BM THIS SHIFT. EDEMA TO BLE, ENCOURAGED ELEVATION. NO NAUSEA. LUNG SOUNDS WITH COURSE CRACKLES, NO COUGH. SATS GREATER THAN 90%. VSS, AFEBRILE. CIWA WAS NEGATIVE AND HAS BEEN ALL NIGHT. NO OTHER CONCERNS TO NOTE. CALL LIGHT IS IN REACH.
--- NOTE | 2020-11-27 09:26 | NUR ---
TELEMETRY NOTIFIED THIS RN THAT PT IS IN AFIB WITH RATE SUSTAINING IN 130'S AT REST. NOTIFIED DR. TIRADO BY PHONE; STATED SHE WILL COME SEE THE PATIENT.
--- NOTE | 2020-11-27 18:59 | NUR ---
SHIFT SUMMARY: AFIB WITH RVR RESOLVED WITH ADMINISTRATION OF LOPRESSOR IV, HR 90-100 AT REST. REFUSED SHOWER, ORAL CARE, AND OOB TO CHAIR TODAY; EDUCATED ABOUT LOSS OF MUSCLE MASS AND ATELECTASIS, TO WHICH HE VERBALIZED UNDERSTANDING BUT COMPLIANCE NOT EXPECTED. NO BM TODAY, GUAIAC STOOL PENDING. STATED PAIN WAS WELL CONTROLLED. PERIPHERAL EDEMA MUCH IMPROVED FROM YESTERDAY. GOOD PO INTAKE.
[2020-11-28 05:21] LABS: BASOPHILS ABSOLUTE AUTO 0.06 K/mm3 (0.00-0.23); BASOPHILS PERCENT AUTO 1 % (0-2); EOSINOPHILS ABSOLUTE AUTO 0.27 K/mm3 (0.00-0.68); EOSINOPHILS PERCENT AUTO 3 % (0-6); Hematocrit 22.6 % (37.0-53.0); Hemoglobin 7.8 g/dL (13.5-17.5); IMMATURE GRAN ABSOLUTE AUTO 0.07 K/mm3 (0.00-0.10); IMMATURE GRAN PERCENT AUTO 1 % (0-1); LYMPHOCYTES ABSOLUTE AUTO 2.44 K/mm3 (0.84-5.20); LYMPHOCYTES PERCENT AUTO 28 % (21-46); MONOCYTES ABSOLUTE AUTO 1.09 K/mm3 (0.16-1.47); MONOCYTES PERCENT AUTO 13 % (4-13); Mean Corpuscular HGB 42.2 pg (26.0-34.0); Mean Corpuscular HGB Conc 34.5 g/dL (31.5-36.5); Mean Corpuscular Volume 122 fL (80-100); Mean Platelet Volume 11.3 fL (9.1-12.4); NEUTROPHILS ABSOLUTE AUTO 4.82 K/mm3 (1.96-9.15); NEUTROPHILS PERCENT AUTO 55 % (41-73); Platelet Count 153 K/mm3 (150-400); RDW Coefficient Variation 16.8 % (11.7-14.2); RDW Standard Deviation 71.3 fL (35.1-46.3); Red Blood Cell Count 1.85 M/mm3 (4.30-5.90); White Blood Cell Count 8.75 K/mm3 (4.00-11.30)
[2020-11-28 05:36] LABS: Albumin, Blood 1.9 g/dL (3.4-5.0); Anion Gap 5 mmol/L (6-16); Blood Urea Nitrogen 17 mg/dL (8-24); Bun/Creatinine Ratio 15.9 (12.0-20.0); CO2, Blood 26 mmol/L (21-32); Calcium, Blood 8.7 mg/dL (8.5-10.1); Chloride, Blood 109 mmol/L (98-108); Creatinine, Blood 1.07 mg/dL (0.60-1.20); Glomerular Filtration Rate >60 (60-); Glucose, Blood 138 mg/dL (70-99); Phosphorus, Blood 2.6 mg/dL (2.5-4.9); Potassium, Blood 3.7 mmol/L (3.5-5.5); Sodium, Blood 140 mmol/L (136-145)
--- NOTE | 2020-11-28 06:34 | NUR ---
SHIFT SUMMARY: HE DID BETTER TONIGHT SLEEPING T/O THE NIGHT. ABDOMIN STILL DISTENDED AND ROUND, FIRM. EDEMA IS DECREASING IN LEGS. MOTIVATION IS LOW, HE ASK FOR HELP WHEN THERE IS THINGS HE CAN DO FOR HIMSELF. ENCOURAGED HIM ALL NIGHT TO PROVIDE SOME SELF CARE. MEDICATED X1 FOR PAIN. STILL TACHYCARDIC 110'S. LUNGS IMPROVED JUST DIMINISHED T/O. ABLE TO USE THE URINAL. FEBRILE AT 99 TONIGHT. NO OTHER CHANGES. CALL LIGHT IS IN REACH, BED ALARM IS ON.
[2020-11-28 12:45] LABS: Stool Occult Blood Guaiac 1 Pos (Neg)
--- NOTE | 2020-11-28 17:05 | NUR ---
SHIFT SUMMARY PT ALERT ORIENTED; WORKED WITH PT/OT TODAY; PT HAS IRREG HEART RATE OF 120'S THIS AM; METOPROLOL GIVEN; AND HR STAYING IN 80-90S PER INTERNAL AFFAIRS INVESTIGATOR; DENIES ANY CHEST PAIN OR DISCOMFORT. PT ON RA AND NO SOB. DIURESING THE PT PER EMAR, NO C.O OF PAIN. STOOL SAMPLE FOR GUAIC SENT TO LAB TODAY. BED IS IN THE LOWEST POSITION AND CALL LIGHT WITHIN REACH
[2020-11-29 04:15] LABS: Hematocrit 23.7 % (37.0-53.0)
[2020-11-29 04:39] LABS: Albumin, Blood 1.9 g/dL (3.4-5.0); Anion Gap 2 mmol/L (6-16); Blood Urea Nitrogen 14 mg/dL (8-24); Bun/Creatinine Ratio 13.1 (12.0-20.0); CO2, Blood 29 mmol/L (21-32); Calcium, Blood 8.6 mg/dL (8.5-10.1); Chloride, Blood 106 mmol/L (98-108); Creatinine, Blood 1.07 mg/dL (0.60-1.20); Glomerular Filtration Rate >60 (60-); Glucose, Blood 122 mg/dL (70-99); Phosphorus, Blood 2.6 mg/dL (2.5-4.9); Potassium, Blood 3.9 mmol/L (3.5-5.5); Sodium, Blood 137 mmol/L (136-145)
--- NOTE | 2020-11-29 05:19 | NUR ---
SHIFT SUMMARY: AOX3, FORGETFUL. NO PAIN THIS SHIFT. ABDOMIN DECREASED, SOFT. STATES IT FEELS MUCH BETTER. LUNG SOUNDS ARE CLEAR T/O. STATES HE IS BREATHING BETTER WELL. EDEMA IS DECREASED. NO BM THIS SHIFT. H/H HAS INCREASED THIS MORNING. VS DID HAVE A DROP IN SPB TO 99. FEBRILE AT 99.1. SLEPT WELL TONIGHT. DENIED ANY COMPLAINTS. CALL LIGHT IN REACH, BED ALARM ON, BED IN LOW POSITION.
[2020-11-29] MEDS ORDERED: FURO40 PO (12:07)
[2020-11-29] MEDS ORDERED: DOCU100 PO (12:07)
[2020-11-29] MEDS ORDERED: FOLI1 PO (12:08)
[2020-11-29] MEDS ORDERED: METO25 PO (12:08)
[2020-11-29] MEDS ORDERED: PANT40 PO (12:09)
[2020-11-29] MEDS ORDERED: POTCHL20ER PO (12:09)
[2020-11-29] MEDS ORDERED: B-1100 M1 PO (12:10)
[2020-11-29] MEDS ORDERED: SENN187 PO (12:10)
[2020-11-29] MEDS ORDERED: ASPI81CH PO (12:11)
--- NOTE | 2020-11-29 13:36 | NUR ---
DISCHARGE SUMMARY PATIENT ALERT AND ORIENTED THIS SHIFT. PATIENT DISCHARGED HOME. PATIENT DENIES PAIN OR DIFFICULTY BREATHING THIS SHIFT. PATIENT STATES EDEMA MUCH IMPROVED OVER PREVIOUS LEVEL. PATIENT PROVIDED WITH DISCHARGE AND MEDICATION EXPLANATION. PATIENT DENIES QUESTIONS A THIS TIME. POWERGLIDE REMOVED PRIOR TO DISCHARGE. PATIENT BELONGINGS WITH PATIENT UPON DISCHARGE. PATIENT TO VEHICLE VIA DISCHARGE VOLUNTEER.
[2020-12-26] MEDS ORDERED: ALDACTONE100 MG PO (23:01)
[2020-12-27] MEDS ORDERED: Kristalose20 GM PO (01:07)
== END 2020-11-29 13:12 | disposition home or self-care (01) | DRG 432 ==
LOC: ER 16:26 → MEDS 16:27
PROVIDERS: Family Medicine; Internal Medicine; Physician Assistant; ADMIT Internal Medicine
PROC: 0W9G3ZZ Drainage of Peritoneal Cavity, Percutaneous Approach (ICD-10-PCS; principal; 2020-11-26)
DX: K70.31 Alcoholic cirrhosis of liver with ascites (principal); J96.01 Acute respiratory failure with hypoxia; I50.31 Acute diastolic (congestive) heart failure; R65.10 Systemic inflammatory response syndrome (SIRS) of non-infectious origin without acute organ dysfunction; D63.8 Anemia in other chronic diseases classified elsewhere; I48.0 Paroxysmal atrial fibrillation; D52.9 Folate deficiency anemia, unspecified; K21.9 Gastro-esophageal reflux disease without esophagitis; K59.00 Constipation, unspecified; E87.6 Hypokalemia; F10.20 Alcohol dependence, uncomplicated; I08.2 Rheumatic disorders of both aortic and tricuspid valves; Z87.440 Personal history of urinary (tract) infections; Z79.899 Other long term (current) drug therapy; Z71.41 Alcohol abuse counseling and surveillance of alcoholic
CPT/HCPCS: 36415; 49083; 51702; 51798; 71045; 76705; 80053; 80069; 81001; 82042; 82272; 82607; 82728; 82746; 82945; 83540; 83550; 83615; 83735; 83880; 84157; 84484; 85014; 85018; 85025; 85027; 85610; 85730; 87070; 87205; 89051; 93005; 93010; 93306; 96372; 97116; 97161; 99283; 99285-25; A9270; C1751; C9113; G0378; J0696; J1650; J1940; J3010; J7050; P9046

== ENCOUNTER 2020-12-27 23:37 | Emergency (ER) | payer MEDICARE ==
[~2020-12-27] VITALS: Ht 182.9 cm; Wt 86.2 kg
[~2020-12-27 23:37] MED LIST changes: +ALDACTONE100 MG PO; +ASPI81CH PO; +B-1100 M1 PO; +BACTRIM DS TAB1 EAC6 PO; +DOCU100 PO; +FOLI1 PO; +FURO40 PO; +Kristalose20 GM PO; +METO25 PO; +PANT40 PO; +POTCHL20ER PO; +SENN187 PO
[2020-12-28 00:16] LABS: BASOPHILS ABSOLUTE AUTO 0.03 K/mm3 (0.00-0.23); BASOPHILS PERCENT AUTO 0 % (0-2); EOSINOPHILS ABSOLUTE AUTO 0.02 K/mm3 (0.00-0.68); EOSINOPHILS PERCENT AUTO 0 % (0-6); Hematocrit 29.4 % (37.0-53.0); Hemoglobin 9.7 g/dL (13.5-17.5); IMMATURE GRAN ABSOLUTE AUTO 0.04 K/mm3 (0.00-0.10); IMMATURE GRAN PERCENT AUTO 0 % (0-1); LYMPHOCYTES ABSOLUTE AUTO 1.02 K/mm3 (0.84-5.20); LYMPHOCYTES PERCENT AUTO 11 % (21-46); MONOCYTES PERCENT AUTO 10 % (4-13); Mean Corpuscular HGB 36.7 pg (26.0-34.0); Mean Corpuscular Volume 111 fL (80-100); Mean Platelet Volume 10.6 fL (9.1-12.4); NEUTROPHILS ABSOLUTE AUTO 7.65 K/mm3 (1.96-9.15); NEUTROPHILS PERCENT AUTO 78 % (41-73); Platelet Count 128 K/mm3 (150-400); RDW Coefficient Variation 14.7 % (11.7-14.2); RDW Standard Deviation 60.5 fL (35.1-46.3); Red Blood Cell Count 2.64 M/mm3 (4.30-5.90); White Blood Cell Count 9.76 K/mm3 (4.00-11.30)
[2020-12-28 00:30] LABS: International Normalized Ratio 1.43; Prothrombin Time Results 15.1 Sec (9.7-11.5)
[2020-12-28 00:35] LABS: Alanine Aminotransfer (ALT/SGP 22 U/L (12-78); Albumin, Blood 2.4 g/dL (3.4-5.0); Albumin/Globulin Ratio 0.4 (0.8-1.8); Alk Phos 80 U/L (50-136); Anion Gap 7 mmol/L (6-16); Aspartate Aminotrans (AST/SGOT 27 U/L (12-37); Bilirubin, Total 1.9 mg/dL (0.1-1.0); Blood Urea Nitrogen 25 mg/dL (8-24); Bun/Creatinine Ratio 19.5 (12.0-20.0); CO2, Blood 21 mmol/L (21-32); Calcium, Blood 9.1 mg/dL (8.5-10.1); Chloride, Blood 108 mmol/L (98-108); Creatinine, Blood 1.28 mg/dL (0.60-1.20); Ethanol (Alcohol), Blood, Med <3 mg/dL; Globulin, Blood 5.4 g/dL (2.2-4.0); Glomerular Filtration Rate 55 (60-); Glucose, Blood 150 mg/dL (70-99); Potassium, Blood 3.8 mmol/L (3.5-5.5); Sodium, Blood 136 mmol/L (136-145); Total Protein, Blood 7.8 g/dL (6.4-8.2); Troponin I <0.015 ng/mL (0.000-0.040)
== END 2020-12-28 04:00 | disposition home or self-care (01) ==
LOC: ER 23:37
PROVIDERS: Emergency Medicine
DX: E86.0 Dehydration (principal); Z91.14 Patient's other noncompliance with medication regimen; Z79.82 Long term (current) use of aspirin; Z79.899 Other long term (current) drug therapy
CPT/HCPCS: 36415; 80053; 82140; 83605; 84484; 85025; 85610; 93005; 93010; 99285-25; A9270; G0480; J7030

== ENCOUNTER → 2021-05-16 | Outpatient (CLI) | payer MEDICARE ==
[2021-05-16 12:57] LABS: Sodium, Urine 80 mmol/L (20-110)
[2021-05-16 13:08] LABS: Protein, Urine Quantitative <5.0 mg/dL (0.0-11.9)
== END ==
LOC: LAB SHORT 06:00 → LAB FUT 05-08 11:45
PROVIDERS: Internal Medicine Nephrology
DX: N18.30 Chronic kidney disease, stage 3 unspecified (principal); D63.1 Anemia in chronic kidney disease; N13.30 Unspecified hydronephrosis; R32 Unspecified urinary incontinence; N20.0 Calculus of kidney; R76.9 Abnormal immunological finding in serum, unspecified; R94.5 Abnormal results of liver function studies; G60.9 Hereditary and idiopathic neuropathy, unspecified; R94.6 Abnormal results of thyroid function studies; D51.8 Other vitamin B12 deficiency anemias; D52.8 Other folate deficiency anemias; D50.9 Iron deficiency anemia, unspecified; N25.81 Secondary hyperparathyroidism of renal origin; E55.9 Vitamin D deficiency, unspecified
CPT/HCPCS: 81050; 82043; 82570; 84156; 84300

== ENCOUNTER 2021-07-27 12:12 | Day surgery (SDC) | payer MEDICARE ==
[~2021-07-27] VITALS: Ht 180.3 cm; Wt 88.0 kg
--- NOTE | 2021-07-27 12:59 | NUR ---
07/27/21 Brandon Nguyen CALL LIGHT WITHIN REACH.
== END 2021-07-27 15:35 | disposition home or self-care (01) ==
LOC: ORSCSDS 12:12
PROVIDERS: Student in an Organized Health Care Education/Training Program
PROC: 0DBL8ZX Excision of Transverse Colon, Via Natural or Artificial Opening Endoscopic, Diagnostic (ICD-10-PCS; principal; 2021-07-27 13:30)
PROC: 0DB48ZX Excision of Esophagogastric Junction, Via Natural or Artificial Opening Endoscopic, Diagnostic (ICD-10-PCS; principal; 2021-07-27 13:30)
PROC: 0DBP8ZX Excision of Rectum, Via Natural or Artificial Opening Endoscopic, Diagnostic (ICD-10-PCS; principal; 2021-07-27 13:30)
PROC: 0DBK8ZX Excision of Ascending Colon, Via Natural or Artificial Opening Endoscopic, Diagnostic (ICD-10-PCS; principal; 2021-07-27 13:30)
DX: K70.30 Alcoholic cirrhosis of liver without ascites (principal); Z12.11 Encounter for screening for malignant neoplasm of colon; K22.70 Barrett's esophagus without dysplasia; D12.3 Benign neoplasm of transverse colon; D12.2 Benign neoplasm of ascending colon; D12.8 Benign neoplasm of rectum; K57.30 Diverticulosis of large intestine without perforation or abscess without bleeding; Z79.899 Other long term (current) drug therapy
CPT/HCPCS: 88305; J2001; J2704; J7120

== ENCOUNTER 2022-09-05 22:27 | Inpatient (IN) | payer MEDICARE ==
[~2022-09-05] VITALS: Ht 180.3 cm; Wt 82.7 kg
[2022-09-05 23:04] LABS: BASOPHILS ABSOLUTE AUTO 0.05 K/mm3 (0.00-0.23); BASOPHILS PERCENT AUTO 1 % (0-2); EOSINOPHILS ABSOLUTE AUTO 0.06 K/mm3 (0.00-0.68); EOSINOPHILS PERCENT AUTO 1 % (0-6); Hematocrit 26.8 % (37.0-53.0); IMMATURE GRAN PERCENT AUTO 1 % (0-1); LYMPHOCYTES ABSOLUTE AUTO 1.77 K/mm3 (0.84-5.20); LYMPHOCYTES PERCENT AUTO 17 % (21-46); MONOCYTES ABSOLUTE AUTO 1.14 K/mm3 (0.16-1.47); MONOCYTES PERCENT AUTO 11 % (4-13); Mean Corpuscular HGB 36.1 pg (26.0-34.0); Mean Corpuscular HGB Conc 33.6 g/dL (31.5-36.5); Mean Corpuscular Volume 108 fL (80-100); NEUTROPHILS ABSOLUTE AUTO 7.12 K/mm3 (1.96-9.15); NEUTROPHILS PERCENT AUTO 70 % (41-73); Platelet Count 189 K/mm3 (150-400); RDW Coefficient Variation 15.7 % (11.7-14.2); RDW Standard Deviation 61.5 fL (35.1-46.3); Red Blood Cell Count 2.49 M/mm3 (4.30-5.90); White Blood Cell Count 10.24 K/mm3 (4.00-11.30)
[2022-09-05 23:05] LABS: Chloride (POC) 107 mmol/L (98-108); Creatinine (POC) 1.2 mg/dL (0.8-1.3); Glucose (ISTAT POC) 181 mg/dL (70-99); Hemoglobin (POC) 8.2 g/dL (13.5-17.5); Potassium (POC) 4.6 mmol/L (3.5-5.5); Sodium (POC) 137 mmol/L (135-148); Total CO2 (POC) 19 mmol/L (21-32)
[2022-09-05 23:26] LABS: Albumin, Blood 2.3 g/dL (3.4-5.0); Albumin/Globulin Ratio 0.7 (0.8-1.8); Bilirubin, Total 0.9 mg/dL (0.1-1.0); Bun/Creatinine Ratio 34.2 (12.0-20.0); Calcium, Blood 8.9 mg/dL (8.5-10.1); Creatinine, Blood 1.11 mg/dL (0.60-1.20); Globulin, Blood 3.2 g/dL (2.2-4.0); Potassium, Blood 4.6 mmol/L (3.5-5.5); Total Protein, Blood 5.5 g/dL (6.4-8.2)
[2022-09-06] MEDS ORDERED: Amoxicillin500 MG PO (04:01)
[2022-09-06] MEDS ORDERED: ZANAFLEX413 PO (04:03)
[2022-09-06 04:56] LABS: Hematocrit 29.2 % (37.0-53.0); Hemoglobin 10.2 g/dL (13.5-17.5)
[2022-09-06 05:15] LABS: Bun/Creatinine Ratio 43.3 (12.0-20.0); Calcium, Blood 8.5 mg/dL (8.5-10.1); Creatinine, Blood 0.83 mg/dL (0.60-1.20); Potassium, Blood 4.4 mmol/L (3.5-5.5)
--- NOTE | 2022-09-06 05:24 | NUR ---
PT ARRIVES TO ICU 15 AT 0325. ADMITTED UNDER ICU STATUS. REPORT RECEIVED. PT SLIDE TRANSFERRED TO BED. NO COMPLAINTS UPON ADMIT OF NAUSEA. NO COMPLAINTS OF GI DISTRESS. PT HAS NOT VOMITED ANY BLOODY SUBSTANCE SINCE ADMIT. HAS VOIDED QUANTITY SUFFICIENT. PROTONIX AND OCTREOTIDE DRIP INFUSING. PT HAS COMPLETED TWO UNITS PRBC'S. NO S/S TRANSFUSION REACTION TO NOTE. PT ALERT AND ORIENTED. PLEASANT AND COOPERATIVE WITH CARE AND ASSESSMENT. VERY GOOD HISTORIAN. WILL CONTINUE TO MONITOR PT, AND WILL REPORT OFF TO ONCOMING RN.
--- NOTE | 2022-09-06 07:00 | NUR ---
ASSUME CARE: I have assumed care of this patient.
[2022-09-06 08:27] LABS: Hematocrit 28.7 % (37.0-53.0); Hemoglobin 10.1 g/dL (13.5-17.5)
[2022-09-06 12:13] LABS: Hematocrit 29.4 % (37.0-53.0); Hemoglobin 10.2 g/dL (13.5-17.5)
--- NOTE | 2022-09-06 18:32 | NUR ---
SHIFT SUMMARY: Pt changed to PCU status this afternoon. NEURO: a/o x 4, RANDOLPH. Transfers with standby RESPIRATORY: CTA on RA CARDIAC: SR in 90's. Occasionally convers into Afib 100-120's for short periods of time. BPs stable GI/: two, liquid, maroon colored BMs today. Pt voiding with urinal independantly. Transitioned to clear liquid diet SKIN: no new breakdown PSYCH/SOCIAL: SO at bedside today to bring pt chief vendor quality. she was updated on case.
--- NOTE | 2022-09-06 19:00 | NUR ---
ASSUMED CARE ASSUMED CARE OF PATIENT. AWAKE AND ALERT. REPOSITIONS SELF IN BED. DENIES C/O NAUSEA OR PAIN/DISCOMFORT AT THIS TIME. PROTONIX INFUSING AT 8MG/HR (10MLS/HR) PER ORDER. SANDOSTATIN FOUND TO BE INFUSING AT ONLY 25MCG/HR- CHANGED TO 50MCG/HR PER ORDER AT THIS TIME. VSS. SEE SHIFT ASSESSMENT FOR FULL ASSESSMENT.
--- NOTE | 2022-09-06 23:00 | NUR ---
TRANSFER TRANSFERRED TO [facility] VIA AMBULANCE AT THIS TIME.
== END 2022-09-06 23:01 | disposition short-term general hospital (02) | DRG 378 ==
LOC: ER 22:27 → ICUE 09-06 03:02 → ICUW 09-06 03:02 → ICUE 09-06 07:04
PROVIDERS: Emergency Medicine; Family Medicine; ADMIT Internal Medicine
PROC: 30233N1 Transfusion of Nonautologous Red Blood Cells into Peripheral Vein, Percutaneous Approach (ICD-10-PCS; principal; 2022-09-06)
DX: K92.0 Hematemesis (principal); D62 Acute posthemorrhagic anemia; I50.32 Chronic diastolic (congestive) heart failure; K92.1 Melena; Z28.21 Immunization not carried out because of patient refusal; K70.30 Alcoholic cirrhosis of liver without ascites; M54.9 Dorsalgia, unspecified; G89.29 Other chronic pain; R73.9 Hyperglycemia, unspecified; I48.0 Paroxysmal atrial fibrillation; I95.9 Hypotension, unspecified; Z86.14 Personal history of Methicillin resistant Staphylococcus aureus infection; Z98.890 Other specified postprocedural states; Z79.899 Other long term (current) drug therapy
CPT/HCPCS: 36415; 36430; 80047; 80048; 80053; 85014; 85018; 85025; 86850; 86900; 86901; 86923; 93005; 93010; 94762; 96365; 96375; 99291-25; A9270; C9113; J0696; J2354; J7030; J7050; P9016

== ENCOUNTER 2022-12-21 12:04 | Day surgery (SDC) | payer MEDICARE ==
[~2022-12-21] VITALS: Ht 180.3 cm; Wt 79.5 kg
[~2022-12-21 12:04] MED LIST changes: +Amoxicillin500 MG PO; +MIDO5 PO; +ZANAFLEX413 PO
[2022-12-21] MEDS ORDERED: HYDACE10B (12:21)
[2022-12-21] MEDS ORDERED: ACET120S (12:21)
[2022-12-21] MEDS ORDERED: FURO20 (12:21)
[2022-12-21] MEDS ORDERED: METO25ER (12:21)
[2022-12-21] MEDS ORDERED: LACT10SY (12:21)
[2022-12-21] MEDS ORDERED: OMEP20ER (12:22)
[2022-12-21] MEDS ORDERED: Spironolactone25 MG (12:23)
[2022-12-21] MEDS ORDERED: TIZA4 (12:23)
[2022-12-21 15:37] VITALS: BP 119/69
== END 2022-12-21 15:30 | disposition home or self-care (01) ==
LOC: ORSCSDS 12:04
PROVIDERS: Student in an Organized Health Care Education/Training Program
PROC: 0DB48ZX Excision of Esophagogastric Junction, Via Natural or Artificial Opening Endoscopic, Diagnostic (ICD-10-PCS; principal; 2022-12-21 13:15)
PROC: 0DB68ZX Excision of Stomach, Via Natural or Artificial Opening Endoscopic, Diagnostic (ICD-10-PCS; principal; 2022-12-21 13:15)
PROC: 0DB98ZX Excision of Duodenum, Via Natural or Artificial Opening Endoscopic, Diagnostic (ICD-10-PCS; principal; 2022-12-21 13:15)
DX: K70.30 Alcoholic cirrhosis of liver without ascites (principal); K22.70 Barrett's esophagus without dysplasia; K29.70 Gastritis, unspecified, without bleeding; Z87.11 Personal history of peptic ulcer disease; Z79.82 Long term (current) use of aspirin; Z79.899 Other long term (current) drug therapy
CPT/HCPCS: 88305; 88342; J0461; J2001; J2405; J2704; J3010; J7120; Q9968

== ENCOUNTER → 2023-05-21 | Outpatient (CLI) | payer MEDICARE ==
[~2023-05-21] MED LIST changes: +ACET120S; +FURO20; +HYDACE10B; +LACT10SY; +METO25ER; +OMEP20ER; +Spironolactone25 MG; +TIZA4
[2023-05-21 12:31] LABS: Protein, Urine Quantitative 5.8 mg/dL (0.0-11.9)
[2023-05-21 12:32] LABS: Creatinine Urine 52.8 mg/dL (27.00-270.00); Microalbumin, Urine Quant. 9.33 mg/L (0.000-20.000)
== END ==
LOC: LAB 09:51 → LAB SHORT 09:51
PROVIDERS: Internal Medicine Nephrology
DX: N18.2 Chronic kidney disease, stage 2 (mild) (principal); E78.00 Pure hypercholesterolemia, unspecified; D63.1 Anemia in chronic kidney disease; N25.81 Secondary hyperparathyroidism of renal origin; E55.9 Vitamin D deficiency, unspecified; N40.1 Benign prostatic hyperplasia with lower urinary tract symptoms; R76.9 Abnormal immunological finding in serum, unspecified; R94.5 Abnormal results of liver function studies; R94.6 Abnormal results of thyroid function studies
CPT/HCPCS: 81050; 82043; 82570; 84156

== ENCOUNTER 2023-07-26 01:40 | Emergency (ER) | payer MEDICARE ==
[~2023-07-26] VITALS: Ht 180.3 cm; Wt 81.7 kg
[2023-07-26] MEDS ORDERED: ACET500 PO (02:04)
[2023-07-26 02:18] LABS: BASOPHILS ABSOLUTE AUTO 0.09 K/mm3 (0.00-0.23); BASOPHILS PERCENT AUTO 1 % (0-2); EOSINOPHILS ABSOLUTE AUTO 0.34 K/mm3 (0.00-0.68); EOSINOPHILS PERCENT AUTO 5 % (0-6); Hematocrit 34.3 % (37.0-53.0); Hemoglobin 11.3 g/dL (13.5-17.5); IMMATURE GRAN ABSOLUTE AUTO 0.02 K/mm3 (0.00-0.10); IMMATURE GRAN PERCENT AUTO 0 % (0-1); LYMPHOCYTES ABSOLUTE AUTO 2.99 K/mm3 (0.84-5.20); LYMPHOCYTES PERCENT AUTO 41 % (21-46); MONOCYTES ABSOLUTE AUTO 0.89 K/mm3 (0.16-1.47); MONOCYTES PERCENT AUTO 12 % (4-13); Mean Corpuscular HGB 32.7 pg (26.0-34.0); Mean Corpuscular HGB Conc 32.9 g/dL (31.5-36.5); Mean Corpuscular Volume 99 fL (80-100); Mean Platelet Volume 10.1 fL (9.1-12.4); NEUTROPHILS ABSOLUTE AUTO 3.03 K/mm3 (1.96-9.15); NEUTROPHILS PERCENT AUTO 41 % (41-73); Platelet Count 154 K/mm3 (150-400); RDW Coefficient Variation 16.2 % (11.7-14.2); RDW Standard Deviation 58.6 fL (35.1-46.3); Red Blood Cell Count 3.46 M/mm3 (4.30-5.90); White Blood Cell Count 7.36 K/mm3 (4.00-11.30)
[2023-07-26 02:24] LABS: Acetaminophen, Random 5.3 ug/mL (10.0-30.0); Alanine Aminotransfer (ALT/SGP 23 U/L (12-78); Albumin, Blood 3.6 g/dL (3.4-5.0); Alk Phos 85 U/L (50-136); Anion Gap 7 mmol/L (6-16); Aspartate Aminotrans (AST/SGOT 25 U/L (12-37); Bilirubin, Total 0.5 mg/dL (0.1-1.0); Blood Urea Nitrogen 13 mg/dL (8-24); CO2, Blood 22 mmol/L (21-32); Calcium, Blood 9.4 mg/dL (8.5-10.1); Chloride, Blood 113 mmol/L (98-108); Creatinine, Blood 1.08 mg/dL (0.60-1.20); Ethanol (Alcohol), Blood, Med 258 mg/dL; Globulin, Blood 3.5 g/dL (2.2-4.0); Glomerular Filtration Rate 72 (60-); Glucose, Blood 121 mg/dL (70-99); Magnesium, Blood 2.2 mg/dL (1.6-2.4); Potassium, Blood 3.3 mmol/L (3.5-5.5); Salicylate <1.7 mg/dL (2.8-20.0); Sodium, Blood 142 mmol/L (136-145); Total Protein, Blood 7.1 g/dL (6.4-8.2)
[2023-07-26 03:04] LABS: International Normalized Ratio 1.05
[2023-07-26 06:30] VITALS: BP 127/77
== END 2023-07-26 06:49 | disposition home or self-care (01) ==
LOC: ER 01:40
PROVIDERS: Emergency Medicine
DX: F10.229 Alcohol dependence with intoxication, unspecified (principal); E86.0 Dehydration; R40.4 Transient alteration of awareness; Z79.899 Other long term (current) drug therapy; Z79.891 Long term (current) use of opiate analgesic; I50.30 Unspecified diastolic (congestive) heart failure
CPT/HCPCS: 70450; 71045; 72125; 72170; 80053; 82140; 82550; 83605; 83690; 83735; 84100; 84443; 84484; 85025; 85610; 85730; 93005; 93010; 99285-25; G0480

== ENCOUNTER → 2024-01-09 | Outpatient (CLI) | payer MEDICARE ==
[~2024-01-09] MED LIST changes: +ACET500 PO; +POTA10T PO
[2024-01-10 13:50] LABS: Creatinine Urine 71.6 mg/dL (27.00-270.00); Microalbumin, Urine Quant. 8.76 mg/L (0.000-20.000); Protein, Urine Quantitative 9.6 mg/dL (0.0-11.9)
== END ==
LOC: LAB 08:00 → LAB SHORT 08:00 → LAB FUT 06-06 08:35
PROVIDERS: Internal Medicine Nephrology
DX: N18.2 Chronic kidney disease, stage 2 (mild) (principal); D63.1 Anemia in chronic kidney disease; N25.81 Secondary hyperparathyroidism of renal origin; E55.9 Vitamin D deficiency, unspecified; E78.00 Pure hypercholesterolemia, unspecified; R76.9 Abnormal immunological finding in serum, unspecified; R94.5 Abnormal results of liver function studies; R94.6 Abnormal results of thyroid function studies
CPT/HCPCS: 81050; 82043; 82570; 84156

== ENCOUNTER 2024-01-13 10:55 | Day surgery (SDC) | payer MEDICARE ==
[~2024-01-13] VITALS: Ht 180.3 cm; Wt 92.3 kg
[~2024-01-13 10:55] MED LIST changes: +Lactated Ringer's 1,000 ML IV ONE; -POTA10T PO
[2024-01-13] MEDS ORDERED: POTA10T PO (11:31)
[2024-01-13] MEDS ORDERED: Lactated Ringer's 1,000 ML IV ONE (12:11)
--- NOTE | 2024-01-13 13:14 | NUR ---
01/13/24 1314 ASHLEY GUTIERREZ PT PRESENTED TO PRE OP AND ADVISED HE DRANK "A GALLON OF WATER" PRIOR TO CHECKING IN. DR. SUN AND DR. CORNELL ([facility]) ADVISED OF THIS. PT IS TO WAIT TWO HOURS FOR WATER (CLEAR LIQUIDS) NPO STATUS. PT IN PRE OP - CALL LIGHT IN HAND, PT UP TO RESTROOM WITH SBA X2. PT ADVISED HE IS NEXT FOR PROCEDURE.
[2024-01-13] MEDS ORDERED: propofoL 50 ML IV ONE (13:40)
[2024-01-13] MEDS ORDERED: Labetalol HCL 5 MG/ML 4ML Injection (Single Dose) ONE (13:40)
--- NOTE | 2024-01-13 13:56 | NUR ---
01/13/24 1356 ASHLEY GUTIERREZ COIL VISUALIZED DURING UPPER ENDOSCOPY PROCEDURE. RECORDS INDICATE THIS COULD BE AN EMOBOLIZATION COIL FROM PRIOR PROCEDURE IN [facility] TO STEMI BLEEDING
[2024-01-13 14:28] VITALS: BP 123/84
== END 2024-01-13 14:25 | disposition home or self-care (01) ==
LOC: ORSCSDS 10:55
PROVIDERS: Internal Medicine Gastroenterology
PROC: 0DJ08ZZ Inspection of Upper Intestinal Tract, Via Natural or Artificial Opening Endoscopic (ICD-10-PCS; principal; 2024-01-13 12:00)
DX: K70.30 Alcoholic cirrhosis of liver without ascites (principal); Z86.010 Personal history of colon polyps; Z87.11 Personal history of peptic ulcer disease; Z79.899 Other long term (current) drug therapy
CPT/HCPCS: J2704; J7120

== ENCOUNTER 2024-10-29 13:39 | Day surgery (SDC) | payer MEDICARE ==
[~2024-10-29] VITALS: Ht 180.3 cm; Wt 93.5 kg
[~2024-10-29 13:39] MED LIST changes: +Glycopyrrolate 0.2 MG/ML 1MLVIAL ONE; +Lidocaine 2% 5 ML SDV ONE; +Lidocaine HCl/Pf 1% 5 ML VIAL ONE; +Ondansetron HCl 2 MG / ML 2ML Vial ONE; +POTA10T PO; +Povidone-Iodine 450 DROP/30 ML Solution ONE; +Tetracaine HCl/Pf 0.5% Opth Soln 4 ml ONE; +ePHEDrine Sulfate 50 MG/ML 1ML Injection ONE
[2024-10-29] MEDS ORDERED: propofoL 50 ML IV ONE (15:16)
[2024-10-29] MEDS ORDERED: Benzocaine Oral Spray 0.5ML UD ONE (15:16)
[2024-10-29] MEDS ORDERED: Lactated Ringer's 1,000 ML IV ONE (16:00)
[2024-10-29 17:21] VITALS: BP 141/94
== END 2024-10-29 17:25 | disposition home or self-care (01) ==
LOC: ORSCSDS 13:39
PROVIDERS: Specialist
PROC: 0DJ08ZZ Inspection of Upper Intestinal Tract, Via Natural or Artificial Opening Endoscopic (ICD-10-PCS; principal; 2024-10-29 15:00)
PROC: 0DBK8ZX Excision of Ascending Colon, Via Natural or Artificial Opening Endoscopic, Diagnostic (ICD-10-PCS; principal; 2024-10-29 15:00)
PROC: 0DBN8ZX Excision of Sigmoid Colon, Via Natural or Artificial Opening Endoscopic, Diagnostic (ICD-10-PCS; principal; 2024-10-29 15:00)
DX: Z12.11 Encounter for screening for malignant neoplasm of colon (principal); Z86.0101 Personal history of adenomatous and serrated colon polyps; K70.31 Alcoholic cirrhosis of liver with ascites; K21.9 Gastro-esophageal reflux disease without esophagitis; Z13.810 Encounter for screening for upper gastrointestinal disorder; D12.2 Benign neoplasm of ascending colon; D12.5 Benign neoplasm of sigmoid colon; K57.30 Diverticulosis of large intestine without perforation or abscess without bleeding; K64.4 Residual hemorrhoidal skin tags; K64.8 Other hemorrhoids; K44.9 Diaphragmatic hernia without obstruction or gangrene; I48.91 Unspecified atrial fibrillation; Z79.899 Other long term (current) drug therapy
CPT/HCPCS: 88305; A9270; J2003; J2405; J2704; J7120

== ENCOUNTER 2025-05-12 09:37 | Inpatient (IN) | payer MEDICARE ==
[2025-05-12] VITALS (61 sets, daily range): BP systolic 66–131; BP diastolic 48–96
[~2025-05-12] VITALS: Ht 172.7 cm; Wt 95.2 kg
[~2025-05-12 09:37] MED LIST changes: +CONSTULOSE10 GM/155 PO; -FURO20; +FURO20 PO; -Glycopyrrolate 0.2 MG/ML 1MLVIAL ONE; -LACT10SY; -Lactated Ringer's 1,000 ML IV ONE; -Lidocaine 2% 5 ML SDV ONE; -Lidocaine HCl/Pf 1% 5 ML VIAL ONE; -METO25ER; -OMEP20ER; +OMEP20ER PO; -Ondansetron HCl 2 MG / ML 2ML Vial ONE; -Povidone-Iodine 450 DROP/30 ML Solution ONE; -Tetracaine HCl/Pf 0.5% Opth Soln 4 ml ONE; -ePHEDrine Sulfate 50 MG/ML 1ML Injection ONE
[2025-05-12] MEDS ORDERED: NS 1,000 ML IV SCH ×6 (09:45→17:35)
[2025-05-12] MEDS ORDERED: CefTRIAXone Sodium 1,000 MG in NS 50 ML IV ONE (09:45)
[2025-05-12 10:00] LABS: pH Blood Venous 7.48 (7.34-7.37)
[2025-05-12 10:03] LABS: Source, Urine Straight Cath
[2025-05-12 10:08] LABS: Bilirubin, Urine Neg (Neg); Color, Urine Yellow (P-Yellow); Glucose Qualitative, Urine Neg (Neg); Ketones, Urine Neg (Neg); Leukocyte Esterase, Urine Neg (Neg); Protein, Urine 2+ (Neg); Specific Gravity, Urine 1.025 (1.003-1.022); Urobilinogen, Urine 2+ (Normal)
[2025-05-12 10:12] LABS: Hematocrit 38.2 % (37.0-53.0); Hemoglobin 13.4 g/dL (13.5-17.5); Mean Corpuscular HGB Conc 35.1 g/dL (31.5-36.5); Mean Corpuscular Volume 103 fL (80-100); NRBC ABSOLUTE 0.00 K/mm3 (0.00-0.02); NRBC Auto 0.0 /100 WBC (0.0-0.2); Platelet Count 69 K/mm3 (150-400); RDW Coefficient Variation 15.9 % (11.7-14.2); RDW Standard Deviation 61.5 fL (35.1-46.3)
[2025-05-12 10:19] LABS: WBC Cast 0-2 /lpf (0)
[2025-05-12 10:21] LABS: Red Blood Cells, Urine 0-2 /hpf (0-2); White Blood Cells, Urine 0-2 /hpf (0-5)
[2025-05-12 10:32] LABS: Magnesium, Blood 1.4 mg/dL (1.6-2.4)
[2025-05-12 10:33] LABS: Alanine Aminotransfer (ALT/SGP 26.0 U/L (12-78); Albumin, Blood 2.8 g/dL (3.4-5.0); Albumin/Globulin Ratio 0.8 (0.8-1.8); Anion Gap 15.0 mmol/L (3-11); Aspartate Aminotrans (AST/SGOT 54.0 U/L (12-37); Bilirubin, Total 2.0 mg/dL (0.1-1.0); Blood Urea Nitrogen 26.0 mg/dL (8-24); CO2, Blood 19.0 mmol/L (21-32); Calcium, Blood 9.5 mg/dL (8.5-10.1); Chloride, Blood 100.0 mmol/L (98-108); Creatinine, Blood 1.19 mg/dL (0.60-1.20); Globulin, Blood 3.7 g/dL (2.2-4.0); Glucose, Blood 151.0 mg/dL (70-99); Potassium, Blood 3.9 mmol/L (3.5-5.5); Sodium, Blood 130.0 mmol/L (136-145); Total Protein, Blood 6.5 g/dL (6.4-8.2)
[2025-05-12 10:45] LABS: Influenza A, PCR NEGATIVE (NEGATIVE); Influenza B, PCR NEGATIVE (NEGATIVE); Resp Syncytial Virus, PCR NEGATIVE (NEGATIVE); SARS-Cov-2 (COVID-19) PCR, MMC NEGATIVE (NEGATIVE)
[2025-05-12 11:19] LABS: BAND PERCENT MAN 4 % (0-8); BASOPHILS ABSOLUTE MAN 0.00 K/mm3 (0.00-0.23); BASOPHILS PERCENT MAN 0 % (0-2); EOSINOPHILS ABSOLUTE MAN 0.02 K/mm3 (0.00-0.68); EOSINOPHILS PERCENT MAN 1 % (0-6); LYMPHOCYTES ABSOLUTE MAN 0.29 K/mm3 (0.84-5.20); LYMPHOCYTES PERCENT MAN 13 % (21-46); MONOCYTES ABSOLUTE MAN 0.04 K/mm3 (0.16-1.47); MONOCYTES PERCENT MAN 2 % (4-13); NEUTROPHILS ABSOLUTE MAN 1.93 K/mm3 (1.96-9.15); SEG NEUTROPHILS PERCENT MAN 80 % (41-73)
[2025-05-12] MEDS ORDERED: TRAM50 PO (11:35)
[2025-05-12] MEDS ORDERED: Vancomycin (Pharmacy Consult) IV SCH ×2 (12:00→12:05)
[2025-05-12] MEDS ORDERED: Prochlorperazine Edisylate 10 mg Vial IV PRN (12:10)
[2025-05-12] MEDS ORDERED: CefTRIAXone Sodium 1,000 MG in NS 100 ML IV ONE (12:10)
[2025-05-12] MEDS ORDERED: FLU VACC TS2025(65UP)/MF59C/PF 45 MCG/0.5 ML SYRINGE IM SCH (12:10)
[2025-05-12] MEDS ORDERED: Vasopressin 20 UNITS in NS 100 ML IV PRN (12:30)
[2025-05-12] MEDS ORDERED: NS 1,000 ML IV ONE ×4 (13:09→15:50)
[2025-05-12 13:16] LABS: Hematocrit 37.7 % (37.0-53.0); Hemoglobin 13.0 g/dL (13.5-17.5); Mean Corpuscular HGB Conc 34.5 g/dL (31.5-36.5); Mean Corpuscular Volume 103 fL (80-100); NRBC ABSOLUTE 0.00 K/mm3 (0.00-0.02); NRBC Auto 0.0 /100 WBC (0.0-0.2); Platelet Count 60 K/mm3 (150-400); RDW Coefficient Variation 16.1 % (11.7-14.2); RDW Standard Deviation 61.9 fL (35.1-46.3)
[2025-05-12 13:28] LABS: Prothrombin Time Results 14.6 Sec (9.7-11.5)
[2025-05-12 13:38] LABS: Alanine Aminotransfer (ALT/SGP 25.0 U/L (12-78); Albumin, Blood 2.4 g/dL (3.4-5.0); Albumin/Globulin Ratio 0.7 (0.8-1.8); Anion Gap 9.0 mmol/L (3-11); Aspartate Aminotrans (AST/SGOT 54.0 U/L (12-37); Bilirubin, Total 2.1 mg/dL (0.1-1.0); Blood Urea Nitrogen 26.0 mg/dL (8-24); CO2, Blood 22.0 mmol/L (21-32); Calcium, Blood 9.0 mg/dL (8.5-10.1); Chloride, Blood 105.0 mmol/L (98-108); Creatinine, Blood 1.3 mg/dL (0.60-1.20); Globulin, Blood 3.5 g/dL (2.2-4.0); Glucose, Blood 115.0 mg/dL (70-99); Potassium, Blood 3.4 mmol/L (3.5-5.5); Sodium, Blood 133.0 mmol/L (136-145); Total Protein, Blood 5.9 g/dL (6.4-8.2)
[2025-05-12 13:43] LABS: Alanine Aminotransfer (ALT/SGP 25.0 U/L (12-78); Albumin, Blood 2.3 g/dL (3.4-5.0); Albumin/Globulin Ratio 0.6 (0.8-1.8); Aspartate Aminotrans (AST/SGOT 55.0 U/L (12-37); Bilirubin, Direct 1.5 mg/dL (0.0-0.3); Bilirubin, Indirect 0.5 mg/dL (0.1-0.7); Bilirubin, Total 2.0 mg/dL (0.1-1.0); Globulin, Blood 3.6 g/dL (2.2-4.0); Total Protein, Blood 5.9 g/dL (6.4-8.2)
[2025-05-12] MEDS ORDERED: Albumin (Human) 25gm/100ml 100 ML IV ONE (13:45)
[2025-05-12 13:59] LABS: BAND PERCENT MAN 27 % (0-8); BASOPHILS ABSOLUTE MAN 0.00 K/mm3 (0.00-0.23); BASOPHILS PERCENT MAN 0 % (0-2); EOSINOPHILS ABSOLUTE MAN 0.00 K/mm3 (0.00-0.68); EOSINOPHILS PERCENT MAN 0 % (0-6); LYMPHOCYTES ABSOLUTE MAN 0.24 K/mm3 (0.84-5.20); LYMPHOCYTES PERCENT MAN 2 % (21-46); MONOCYTES ABSOLUTE MAN 0.36 K/mm3 (0.16-1.47); MONOCYTES PERCENT MAN 3 % (4-13); NEUTROPHILS ABSOLUTE MAN 11.58 K/mm3 (1.96-9.15); SEG NEUTROPHILS PERCENT MAN 68 % (41-73)
--- NOTE | 2025-05-12 14:39 | NUR ---
NS BOLUS FINISHED UPDATED DR YANCEY WITH PT VS. AFIB HR 130-160S. REMAINS ON LEVO AND VASOPRESSIN SEE FLOWSHEET. VERBAL ORDER RECIEVED 1000ML ML NS WO. THEN CALL WITH UPDATE ON PT CONDITION.
[2025-05-12] MEDS ORDERED: Potassium Phosphate Dibasic 20 MM in Dextrose 5% 500 ML IV ONE (15:50)
[2025-05-12] MEDS ORDERED: Enoxaparin 100 MG/ML 1ML SYR SC SCH (18:00)
--- NOTE | 2025-05-12 18:21 | NUR ---
SHIFT SUMMARY: ASSUMED CARE OF PT AT 1300, PT IS ALERT AND ORIENTED X 4 ABLE TO FOLLOW COMMANDS AND COMMUNICATE NEEDS. PT DIAPHORETIC ON ARRIVAL. PT ON 2L OF OXYGEN VIA NC TO MAINTAIN SPO2 ABOVE 92% RR BETWEEN 20-30, HOWEVER, DENIES SOB. LEVOPHED INFUSING TO LEFT AC, INFILTRATION NOTED ON ARRIVAL , INFUSION STOPPED, MADE AWARE, REGITINE GIVEN SUB Q AROUND SITE PER ORDER IV REMOVED. CENTRAL LINE PLACED TO LIJ, PLACEMENT VERIFIED WITH X-RAY. LEVOPHED INFUSING AT 6MCG/MIN, VASOPRESSIN ON SB, MAP'S MAINTAINING ABOVE 65. PT RECEIVED A TOTAL OF 7L OF IV FLUIDS PER MAR, MADE AWARE. PT IN AFIB WITH RVR, 0.5MG OF DIGOXIN GIVEN PER MAR, CURRENT HR 110-120'S. TEMP MACE PLACED, 150ML OF RAMONA COLORED URINE FOR SHIFT, DR AWARE OF LOW URINE OUTPUT. ACTIVE BT IN ALL QUADRANTS, NO BM THIS SHIFT, LAST BM 05/11. PT ABLE TO REPOSITION SELF. PLAN OF CARE ONGOING, CALL LIGHT WITHIN REACH.
--- NOTE | 2025-05-12 19:33 | NUR ---
ASSESSMENT/ASSUMED CARE PT SITTING UP IN BED VISITING WITH SON. DENIES PAIN OR DISCOMFORT. A&O X3. REORIENTED TO YEAR. SPEECH CLEAR AND APPROP. SON GOING HOME FOR THE NIGHT. LUNGS CLEAR BUT DECREASED IN THE BASES ON 4 LITERS O2 VIA. DENEIS SOB OR COUGH. STATES,"I DON'T FEEL ANY SOB, BUT EVERYONE KEEPS ASKING ME. THIS IS HOW MY BREATHING IS NORMALLY". HEART RATE REGULAR BUT TACHY 100'S. BP STABLE ON LEVOPHED AT 6 MCQ. VASOPRESSIN ON STANDBY. 3+ EDEMA NOTED TO LOWER EXT. SCD'S ON. PT ABLE TO MOVE ALL EXT AND FOLLOW INSTRUCTIONS. BT+ ABD SOFT AND NONTENDER. DENIES CHEST PAIN, PRESSURE OR N/V. MACE CATH PATENT DRAINING YELLOW URINE. CENTRAL LINE TO LEFT IJ WITH NS AT 100 ML/HR, LEVOPHED AT 6MCQ/HR AND POTASSIUM PHOS INFUSING. DRSG INTACT. IV TO RIGHT FOREARM/WRIST SALINE LOCKED FLUSHED WITHOUT DIFFICULTY. LEFT AC WITH BRUISING FROM IV INFILTATE. PHOTO DONE. LEFT FOOT WITH BRUISING AND ABRAISION 2X1CM. PHOTO TAKEN AND FOAM DRSG APPLIED. PT TURNING AND MOVING SELF IN BED WITH MIN ASSIST.
[2025-05-13] VITALS (81 sets, daily range): BP systolic 89–151; BP diastolic 50–103
[2025-05-13 03:27] LABS: Hematocrit 31.9 % (37.0-53.0); Hemoglobin 10.6 g/dL (13.5-17.5); Mean Corpuscular HGB Conc 33.2 g/dL (31.5-36.5); Mean Corpuscular Volume 105 fL (80-100); NRBC ABSOLUTE 0.00 K/mm3 (0.00-0.02); NRBC Auto 0.0 /100 WBC (0.0-0.2); Platelet Count 51 K/mm3 (150-400); RDW Coefficient Variation 16.2 % (11.7-14.2); RDW Standard Deviation 63.0 fL (35.1-46.3)
[2025-05-13 03:41] LABS: pH Blood Venous 7.31 (7.34-7.37)
[2025-05-13 03:45] LABS: BAND PERCENT MAN 3 % (0-8); BASOPHILS ABSOLUTE MAN 0.00 K/mm3 (0.00-0.23); BASOPHILS PERCENT MAN 0 % (0-2); EOSINOPHILS ABSOLUTE MAN 0.00 K/mm3 (0.00-0.68); EOSINOPHILS PERCENT MAN 0 % (0-6); LYMPHOCYTES ABSOLUTE MAN 0.49 K/mm3 (0.84-5.20); LYMPHOCYTES PERCENT MAN 5 % (21-46); METAMYELOCYTE ABSOLUTE MAN 0.09 K/mm3 (0.00-0.00); METAMYELOCYTE PERCENT MAN 1 % (0-0); MONOCYTES ABSOLUTE MAN 0.19 K/mm3 (0.16-1.47); MONOCYTES PERCENT MAN 2 % (4-13); NEUTROPHILS ABSOLUTE MAN 9.13 K/mm3 (1.96-9.15); SEG NEUTROPHILS PERCENT MAN 89 % (41-73)
[2025-05-13 04:09] LABS: Alanine Aminotransfer (ALT/SGP 20 U/L (12-78); Albumin, Blood 2.2 g/dL (3.4-5.0); Albumin/Globulin Ratio 0.8 (0.8-1.8); Anion Gap 8 mmol/L (3-11); Aspartate Aminotrans (AST/SGOT 40 U/L (12-37); Bilirubin, Total 1.1 mg/dL (0.1-1.0); Blood Urea Nitrogen 21 mg/dL (8-24); CO2, Blood 22 mmol/L (21-32); Calcium, Blood 8.0 mg/dL (8.5-10.1); Chloride, Blood 114 mmol/L (98-108); Creatinine, Blood 0.86 mg/dL (0.60-1.20); Globulin, Blood 2.9 g/dL (2.2-4.0); Glucose, Blood 105 mg/dL (70-99); Potassium, Blood 4.0 mmol/L (3.5-5.5); Sodium, Blood 140 mmol/L (136-145); Total Protein, Blood 5.1 g/dL (6.4-8.2)
--- NOTE | 2025-05-13 05:33 | NUR ---
SHIFT SUMMARY PT RESTING QUIETLY AT THIS TIME. STATES,"MY NECK PAIN IS ALL GONE AFTER THAT TYLENOL". PT MED WITH MELATONIN AND SEROQUEL FOR INSOMNIA WITH POOR RESULTS. PT AWAKE ALL NIGHT UNTIL GIVEN TYLENOL. LEVOPHED TITRATED TO OFF DURING THE NIGHT, MAP REMAINED GREATER THAN 65. HEART RATE HAS BEEN 100 MOST OF NIGHT UNTIL THIS AM. NOW AFIB WITH RVR IN THE 140'S. DR TAO NOTIFIED, AWAITING ORDERS. INCREASED URINE OUTPUT DURING THE NIGHT. BLOOD CULTURES + GRAM NEGATIVE BACCI, REPORTED TO DR TAO. PT ON 2 LITERS O2 VIA NC TO KEEP SPO2 GREATER THAN 90%. REPORT TO ON COMING NURSE
[2025-05-13 06:14] LABS: Magnesium, Blood 1.6 mg/dL (1.6-2.4); Phosphorus, Blood 2.2 mg/dL (2.5-4.9)
[2025-05-13] MEDS ORDERED: Mag Sulfate 1 GM/D5% 100ML 100 ML IV ONE (06:30)
[2025-05-13] MEDS ORDERED: Amiodarone HCl 450 MG in NS 250 ML IV SCH (08:50)
[2025-05-13] MEDS ORDERED: Enoxaparin 40 MG/0.4 ML SYR SC SCH (09:00)
[2025-05-13] MEDS ORDERED: Sodium Phosphate Mono/Dibasic 250 MG Tab PO SCH (09:00)
[2025-05-13] MEDS ORDERED: Metoprolol Tartrate 1 MG/ML 5 ML VIAL IV ONE ×2 (09:55→10:10)
[2025-05-13] MEDS ORDERED: Amiodarone HCl 150 MG in NS 100 ML IV ONE (11:00)
[2025-05-13] MEDS ORDERED: Magnesium Sulf 2 GM/Water 50ML 50 ML IV STA (11:12)
[2025-05-13] MEDS ORDERED: CefTRIAXone Sodium 2,000 MG in NS 100 ML IV SCH (12:00)
[2025-05-13] MEDS ORDERED: NS 250 ML IV PRN (13:35)
--- NOTE | 2025-05-13 19:38 | NUR ---
SHIFT SUMMARY NEURO: ALERT AND ORIENTED TO PERSON, PLACE AND SITUATION BUT DISORIENTED TO TIME. +DELIRIUM. MILD VISUAL HALLUCINATIONS. CARDIAC: SBP 100-140S. HR 100-110S. ON AMIO AND CARDIZEM AT 10MG/HR. SR, LBB. PULM: CLEAR TO AUSCULATION. ON 5 LPM TO MAINTAIN SPO2 >92%. +ORTHOPNEA GI: LAST BM 05/13/25. SOFT/BROWN. ABDOMEN IS SOFT/NON TENDER WITH NORMOACTIVE BOWEL TONES : MACE DRAINING YELLOW URINE. + FLUID BALANCE BUT MAKING GOOD URINE SKIN: LUE INFILTRATE SITE UNCHANGED REMAINS SOFT TO PALPATION. GLORIA XIONG CAME THIS EVENING TO VISIT.
[2025-05-13] MEDS ORDERED: Ketorolac Tromethamine 15mg Vial IV PRN (22:30)
[2025-05-14] VITALS (64 sets, daily range): BP systolic 11–191; BP diastolic 58–164
[2025-05-14 03:41] LABS: BASOPHILS ABSOLUTE AUTO 0.02 K/mm3 (0.00-0.23); BASOPHILS PERCENT AUTO 0 % (0-2); EOSINOPHILS ABSOLUTE AUTO 0.01 K/mm3 (0.00-0.68); EOSINOPHILS PERCENT AUTO 0 % (0-6); Hematocrit 32.8 % (37.0-53.0); Hemoglobin 11.0 g/dL (13.5-17.5); IMMATURE GRAN ABSOLUTE AUTO 0.16 K/mm3 (0.00-0.10); IMMATURE GRAN PERCENT AUTO 2 % (0-1); LYMPHOCYTES ABSOLUTE AUTO 0.57 K/mm3 (0.84-5.20); LYMPHOCYTES PERCENT AUTO 6 % (21-46); MONOCYTES ABSOLUTE AUTO 0.42 K/mm3 (0.16-1.47); MONOCYTES PERCENT AUTO 5 % (4-13); Mean Corpuscular HGB Conc 33.5 g/dL (31.5-36.5); Mean Corpuscular Volume 107 fL (80-100); NEUTROPHILS ABSOLUTE AUTO 7.92 K/mm3 (1.96-9.15); NEUTROPHILS PERCENT AUTO 87 % (41-73); NRBC ABSOLUTE 0.00 K/mm3 (0.00-0.02); NRBC Auto 0.0 /100 WBC (0.0-0.2); RDW Coefficient Variation 16.6 % (11.7-14.2); RDW Standard Deviation 65.8 fL (35.1-46.3); pH Blood Venous 7.26 (7.34-7.37)
[2025-05-14 03:44] LABS: Platelet Count 47 K/mm3 (150-400)
[2025-05-14 04:17] LABS: Anion Gap 8 mmol/L (3-11); Blood Urea Nitrogen 17 mg/dL (8-24); CO2, Blood 22 mmol/L (21-32); Calcium, Blood 8.6 mg/dL (8.5-10.1); Chloride, Blood 115 mmol/L (98-108); Creatinine, Blood 0.75 mg/dL (0.60-1.20); Glucose, Blood 193 mg/dL (70-99); Magnesium, Blood 2.2 mg/dL (1.6-2.4); Phosphorus, Blood 2.7 mg/dL (2.5-4.9); Potassium, Blood 4.2 mmol/L (3.5-5.5); Sodium, Blood 141 mmol/L (136-145)
--- NOTE | 2025-05-14 06:12 | NUR ---
SHIFT SUMMARY: PT A&O X 2, ABLE TO STATE NAME, AND CORRECT MONTH/DAY BUT STATES IT IS THE . PT PLEASANT AND COOPERATIVE WITH CARE. ACUTE DELERIUM NOTED WITH MILD VISUAL HALLUCINATIONS. PT PULLED OUT ONE IV THIS SHIFT AND PULLING AT OTHER LINES/CORDS BUT ABLE TO BE REDIRECTED. PT GIVEN ONE DOSE OF ZYPREXA WITH MINIMAL EFFECT. PT ON HFNC @ 7LPM; LUNGS CLEAR IN UPPER LOBES BUT DIMINISHED IN ALL OTHER GARY; EXERTIONAL DYSPNEA OBSERVED WHEN REPOSITIONING. PT SPO2 94<. PT IN AND OUT OF AFIB WITH HR 90-110, SBP 120-140'S AND DENIES CHEST PAIN. PT TOLERATES PO INTAKE BUT STRUGGLED WITH LARGER PILLS THIS SHIFT, PROVIDER AWARE. PT HAS TEMP MACE PATENT AND DRAINING TO GRAVITY; OLIGURA NOTED AND URINE RAMONA IN COLOR, PROVIDER AWARE. NO BM THIS SHIFT. PT HAD LIJ CENTRAL LINE THAT IS PATENT AND INFUSING AMIO @ 0.5 MG/HR AND NS @ 100 MLS/HR; CARDIZEM PLACED ON SB APPROX. 2300. PT SLEPT ON AND OFF THROUGHOUT THE SHIFT, AND REMAINS CONFUSED BUT REDIRECTABLE. CRITICAL PH THIS MORNING OF 7.26; PROVIDER AWARE AND REPEAT VBG ORDERED. BED LOWERED, CALL LIGHT IN REACH, WILL REPORT OFF TO ONCOMING RN.
[2025-05-14] MEDS ORDERED: Sodium Bicarb 8.4% Inj 100 MEQ in Sodium Chloride 0.45% 1,000 ML IV SCH (08:45)
[2025-05-14] MEDS ORDERED: Furosemide 10 MG / ML 2ML Vial IV ONE (11:00)
[2025-05-14 12:26] LABS: pH Blood Venous 7.26 (7.34-7.37)
--- NOTE | 2025-05-14 13:40 | NUR ---
PALLIATIVE CARE VISIT: CONSULT RECEIVED FOR AD/POLST. REVIEWED MEDICAL RECORD PRIOR TO VISIT. PT HAS NO POLST/AD ON FILE OR THROUGH [facility]. SPOKE TO PRIMARY RN PRIOR TO VISIT. PT IS CONFUSED, HAS DIORGANIZED SPEECH AT TIMES. WAS ABLE TO EDUCATE ON CODE STATUS. PT STATES HE WANTS TO REMAIN A FULL CODE AND WOULD BE OKAY IF HE NEEDED TO BE INTUBATED. WILL DISCUSS ADVANCE DIRECTIVE AND COMPLETED POLST WHEN PT IS NO LONGER CONFUSED OR HAVING DISORGANIZED SPEECH. PT DID REPORT HE HAS NO PAIN, NAUSEA, HAS GOOD APPETITE. STATES "I AM GETTING REALLY GOOD CARE FROM THE NURSES AND DOCTORS".
[2025-05-14 16:54] LABS: pH Blood Venous 7.25 (7.34-7.37)
[2025-05-14] MEDS ORDERED: Sodium Bicarb 8.4% 1 MEQ/ML 50 ML Vial ONE (23:56)
[2025-05-15] VITALS (74 sets, daily range): BP systolic 84–194; BP diastolic 52–167
[2025-05-15 04:53] LABS: pH Blood Venous 7.25 (7.34-7.37)
[2025-05-15 04:55] LABS: BASOPHILS ABSOLUTE AUTO 0.02 K/mm3 (0.00-0.23); BASOPHILS PERCENT AUTO 0 % (0-2); EOSINOPHILS ABSOLUTE AUTO 0.07 K/mm3 (0.00-0.68); EOSINOPHILS PERCENT AUTO 1 % (0-6); Hematocrit 34.6 % (37.0-53.0); Hemoglobin 11.0 g/dL (13.5-17.5); IMMATURE GRAN ABSOLUTE AUTO 0.07 K/mm3 (0.00-0.10); IMMATURE GRAN PERCENT AUTO 1 % (0-1); LYMPHOCYTES ABSOLUTE AUTO 1.01 K/mm3 (0.84-5.20); LYMPHOCYTES PERCENT AUTO 16 % (21-46); MONOCYTES ABSOLUTE AUTO 0.62 K/mm3 (0.16-1.47); MONOCYTES PERCENT AUTO 10 % (4-13); Mean Corpuscular HGB Conc 31.8 g/dL (31.5-36.5); Mean Corpuscular Volume 110 fL (80-100); NEUTROPHILS ABSOLUTE AUTO 4.47 K/mm3 (1.96-9.15); NEUTROPHILS PERCENT AUTO 72 % (41-73); NRBC ABSOLUTE 0.00 K/mm3 (0.00-0.02); NRBC Auto 0.0 /100 WBC (0.0-0.2); Platelet Count 53 K/mm3 (150-400); RDW Coefficient Variation 17.0 % (11.7-14.2); RDW Standard Deviation 69.0 fL (35.1-46.3)
[2025-05-15 05:26] LABS: Anion Gap 6 mmol/L (3-11); Blood Urea Nitrogen 15 mg/dL (8-24); CO2, Blood 28 mmol/L (21-32); Calcium, Blood 9.0 mg/dL (8.5-10.1); Chloride, Blood 112 mmol/L (98-108); Creatinine, Blood 0.69 mg/dL (0.60-1.20); Glucose, Blood 106 mg/dL (70-99); Potassium, Blood 4.5 mmol/L (3.5-5.5); Sodium, Blood 141 mmol/L (136-145)
--- NOTE | 2025-05-15 06:04 | NUR ---
SHIFT SUMMARY PT REMAINS A&O X2 WITH CONFUSION RELATED TO WHERE HE IS AND WHAT IS HAPPENING, HE IS REDIRECTABLE AND FOLLOWS COMMANDS, PT IS AFEBRILE. PT ON 5L HFNC WITH SPO2 >95%, PT DESATS WITH EXERTION AND IF LYING FLAT; DIFFICULT TO RECOVER. SBP IN THE 120-150'S AND HR IN THE 90-100'S AFIB RHYTHM, PT DENIES CHEST PAIN/PRESSURE. ABDOMEN SLIGHY DISTENDED, PT DENIES PAIN. NO BM THIS SHIFT. PT HAS MACE CATHETER IN PLACE, PATENT, AND DRAINING TO GRAVITY. SODIUM BICARB GTT INFUSING @ 75ML/HR. CALL LIGHT KAPIL VU, NO IMMEDIATE CONCERNS NOTED AT THIS TIME. WILL REPORT TO ONCOMING ROSALBA
[2025-05-15] MEDS ORDERED: Sodium Bicarb 8.4% Inj 100 MEQ in Sodium Chloride 0.45% 1,000 ML IV SCH (08:00)
[2025-05-15] MEDS ORDERED: Sodium Bicarb 8.4% 50 mEq Syringe IV SCH (08:00)
[2025-05-15 12:12] LABS: pH Blood Venous 7.39 (7.34-7.37)
[2025-05-15] MEDS ORDERED: Albuterol 2.5 MG/3 ML VIAL INH PRN (14:40)
[2025-05-16] VITALS (30 sets, daily range): BP systolic 89–144; BP diastolic 42–86
[2025-05-16 04:25] LABS: pH Blood Venous 7.37 (7.34-7.37)
[2025-05-16 04:51] LABS: BASOPHILS ABSOLUTE AUTO 0.03 K/mm3 (0.00-0.23); BASOPHILS PERCENT AUTO 0 % (0-2); EOSINOPHILS ABSOLUTE AUTO 0.18 K/mm3 (0.00-0.68); EOSINOPHILS PERCENT AUTO 3 % (0-6); Hematocrit 31.8 % (37.0-53.0); Hemoglobin 10.3 g/dL (13.5-17.5); IMMATURE GRAN ABSOLUTE AUTO 0.06 K/mm3 (0.00-0.10); IMMATURE GRAN PERCENT AUTO 1 % (0-1); LYMPHOCYTES ABSOLUTE AUTO 1.10 K/mm3 (0.84-5.20); LYMPHOCYTES PERCENT AUTO 15 % (21-46); MONOCYTES ABSOLUTE AUTO 0.64 K/mm3 (0.16-1.47); MONOCYTES PERCENT AUTO 9 % (4-13); Mean Corpuscular HGB Conc 32.4 g/dL (31.5-36.5); Mean Corpuscular Volume 109 fL (80-100); NEUTROPHILS ABSOLUTE AUTO 5.17 K/mm3 (1.96-9.15); NEUTROPHILS PERCENT AUTO 72 % (41-73); NRBC ABSOLUTE 0.00 K/mm3 (0.00-0.02); NRBC Auto 0.0 /100 WBC (0.0-0.2); Platelet Count 63 K/mm3 (150-400); RDW Coefficient Variation 17.0 % (11.7-14.2); RDW Standard Deviation 67.3 fL (35.1-46.3)
[2025-05-16 05:12] LABS: Alanine Aminotransfer (ALT/SGP 28.0 U/L (12-78); Albumin, Blood 2.0 g/dL (3.4-5.0); Albumin/Globulin Ratio 0.7 (0.8-1.8); Anion Gap 5.0 mmol/L (3-11); Aspartate Aminotrans (AST/SGOT 51.0 U/L (12-37); Bilirubin, Total 1.2 mg/dL (0.1-1.0); Blood Urea Nitrogen 17.0 mg/dL (8-24); CO2, Blood 30.0 mmol/L (21-32); Calcium, Blood 8.7 mg/dL (8.5-10.1); Chloride, Blood 111.0 mmol/L (98-108); Creatinine, Blood 0.76 mg/dL (0.60-1.20); Globulin, Blood 2.8 g/dL (2.2-4.0); Glucose, Blood 111.0 mg/dL (70-99); Potassium, Blood 4.3 mmol/L (3.5-5.5); Sodium, Blood 142.0 mmol/L (136-145); Total Protein, Blood 4.8 g/dL (6.4-8.2)
--- NOTE | 2025-05-16 06:16 | NUR ---
SHIFT SUMM: PT HAS HAD A RESTFUL EVENING THIS SHIFT AND WAS ABLE TO GET SOME SLEEP BUT STILL NOT MUCH OF AN APPETITE. PT HAD A BM ON THE BED BROOKS AND TEMP NAKITA REMAINS PATENT. TYLENOL GIVEN FOR FEVER (SEE EMAR). PT HAD COMPLAINTS OF NECK PAIN AND MEDICATED PER EMAR. LIJ REMAINS PATENT. PT IS A&OX3 AND SPO2 IS >96% ON 8L NC AND BIPAP USE LAST NIGHT-SEE ASSESSMENT FOR SETTINGS. PT FOLLOWS COMMANDS AND CALLS TO MAKE NEEDS KNOWN. CALL LIGHT IN REACH AND BED LOW AND LOCKED FOR SAFETY.
--- NOTE | 2025-05-16 08:27 | NUR ---
ASSUMPTION OF CARE ASSUMED CARE OF PATIENT AT APPROX 0700. PATIENT ALERT AND ORIENTED. NO FOCAL DEFICITS. HR AFIB IN THE 90S-100S. BP STABLE WITH MAPS >65. PATIENT ON 8L O2 VIA NC WITH SPO2 >94%. PATIENT UP TO CHAIR WITH ON ASSIST. MACE PATIENT AND DRAINING TO GRAVITY. LEFT IJ PATENT AND SALINE LOCKED. CALL LIGHT IN REACH. BED IN LOWEST POSITION.
[2025-05-16] MEDS ORDERED: FURO80 PO (13:11)
--- NOTE | 2025-05-16 17:34 | NUR ---
SHIFT SUMMARY PATIENT ALERT AND ORIENTED WITH INTERMITTENT CONFUSION THROUGHOUT THE SHIFT. NO FOCAL DEFICITS. HR SINUS IN THE 80S-90S. BP STABLE WITH MAPS >65. PATIENT ON 4L O2 VIA NC WITH SPO2 >94%. PATIENT WAS ON BIPAP FOR A COUPLE OF HOURS TODAY D/T SOB, SHIVERING, AND FEVER. TEMP MACE PATENT AND DRAINING YELLOW URINE TO GRAVITY. TMAX 102.1. PATIENT MEDICATED WITH TYLENOL PER EMAR. NO BM THIS SHIFT. PATIENT UP TO CHAIR TODAY WITH NURSE AND WALKER ASSIST. RIGHT PIV PATENT AND SALINE LOCKED. BED IN LOWEST POSITION. CALL LIGHT IN REACH.
[2025-05-17 03:30] LABS: pH Blood Venous 7.41 (7.34-7.37)
[2025-05-17 03:35] LABS: BASOPHILS ABSOLUTE AUTO 0.03 K/mm3 (0.00-0.23); BASOPHILS PERCENT AUTO 0 % (0-2); EOSINOPHILS ABSOLUTE AUTO 0.14 K/mm3 (0.00-0.68); EOSINOPHILS PERCENT AUTO 2 % (0-6); Hematocrit 32.2 % (37.0-53.0); Hemoglobin 10.7 g/dL (13.5-17.5); IMMATURE GRAN ABSOLUTE AUTO 0.07 K/mm3 (0.00-0.10); IMMATURE GRAN PERCENT AUTO 1 % (0-1); LYMPHOCYTES ABSOLUTE AUTO 0.96 K/mm3 (0.84-5.20); LYMPHOCYTES PERCENT AUTO 13 % (21-46); MONOCYTES ABSOLUTE AUTO 0.60 K/mm3 (0.16-1.47); MONOCYTES PERCENT AUTO 8 % (4-13); Mean Corpuscular HGB Conc 33.2 g/dL (31.5-36.5); Mean Corpuscular Volume 106 fL (80-100); NEUTROPHILS ABSOLUTE AUTO 5.34 K/mm3 (1.96-9.15); NEUTROPHILS PERCENT AUTO 75 % (41-73); NRBC ABSOLUTE 0.00 K/mm3 (0.00-0.02); NRBC Auto 0.0 /100 WBC (0.0-0.2); Platelet Count 80 K/mm3 (150-400); RDW Coefficient Variation 16.8 % (11.7-14.2); RDW Standard Deviation 65.9 fL (35.1-46.3)
[2025-05-17 03:54] LABS: Alanine Aminotransfer (ALT/SGP 29.0 U/L (12-78); Albumin, Blood 2.0 g/dL (3.4-5.0); Albumin/Globulin Ratio 0.7 (0.8-1.8); Anion Gap 5.0 mmol/L (3-11); Aspartate Aminotrans (AST/SGOT 42.0 U/L (12-37); Bilirubin, Total 1.3 mg/dL (0.1-1.0); Blood Urea Nitrogen 14.0 mg/dL (8-24); CO2, Blood 32.0 mmol/L (21-32); Calcium, Blood 9.1 mg/dL (8.5-10.1); Chloride, Blood 107.0 mmol/L (98-108); Creatinine, Blood 0.69 mg/dL (0.60-1.20); Globulin, Blood 2.9 g/dL (2.2-4.0); Glucose, Blood 100.0 mg/dL (70-99); Potassium, Blood 3.9 mmol/L (3.5-5.5); Sodium, Blood 140.0 mmol/L (136-145); Total Protein, Blood 4.9 g/dL (6.4-8.2)
[2025-05-17 04:23] VITALS: BP 119/64
--- NOTE | 2025-05-17 04:26 | NUR ---
SHIFT SUMMARY A&Ox2-3, not exactly sure why he is here or how he got here, slow to respond at times. No pain. 3L NC vs BiPAP at 25%. Intermittent wheezes. SR with PACs and BBB. BP WDL. dependent edema in BLE. no BM. valdovinos removed at 2330 - pt has voided several times post removal. bruising to abd and L AC. blood blister on RLQ covered with mepilex.
--- NOTE | 2025-05-17 05:30 | NUR ---
report recieved from pt, pt oriented to rm. sob noted with exersion.
[2025-05-17 05:31] VITALS: BP 127/62
--- NOTE | 2025-05-17 06:06 | NUR ---
PT TRANSFERED FROM ICU. REPORT WAS RECIEVED, PT WAAS ORIENTED TO RM, CALL LIGHT WITHIN REACH, VS NOTED. PT HAS NOTED SOB WITH ANY EXERTION WITH POOR RECOVERY TIME.
[2025-05-17 09:13] VITALS: BP 131/72
[2025-05-17 11:52] VITALS: BP 119/65
[2025-05-17 15:25] VITALS: BP 119/89
--- NOTE | 2025-05-17 19:21 | NUR ---
SHIFT SUMMARY PATIENT AOX2-3, T/O SHIFT. SBP 110'S-120'S T/O SHIFT. HR 80-100 ST OR SR. STATUS CHANGE TO MED NO TELE. O2 SATS >92% ON 1 L NC. PATIENT IS FREQUENTLY IMPULSIVE/FORGETFUL BED/CHAIR ALARM IN PLACE FOR SAFETY. FOLLOWS DIRECTIONS AND IS EASILY REDIRECTABLE. BIPAP AT NIGHT FOR SLEEP. [facility] DENIES CHEST PAIN/PRESSURE/SOB AT THIS TIME. 1P SBA TO BATHROOM/COMMODE. PATIENT RESTING COMFORTABLY IN RECLINER, CHAIR ALARM ON, CALL LIGHT IN REACH. BLOOD CULTURES POSITIVE. RESULT IN CHART, PROVIDER AWARE.
[2025-05-17 19:45] VITALS: BP 137/102
[2025-05-18 03:58] VITALS: BP 120/67
--- NOTE | 2025-05-18 05:45 | NUR ---
SHIFT SUMMARY THIS RN ASSUMED CARE OF PATIENT AT 1900. PT A&O X2-3. OCCASIONALLY COMPULSIVE AND SETTING BED ALARM OFF T/O THIS SHIFT. CALM AND COOPERATIVE WITH CARE. BP STABLE. NO TELE, HRR REGULAR 90S. ON 2L VIA NC WITH SLEEP TO MAINTAIN SPO2, TITRATED TO RA WHILE SITTING UP IN CHAIR/AWAKE. PT REFUSING TO WEAR BIPAP T/O THIS SHIFT. UNINTERESTED IN EDUCATION REGARDING BIPAP. DYSPNEA NOTED WITH EXERTION. USING URINAL WITH 1P ASSIST AT BEDSIDE. NO BM THIS SHIFT. BED IN LOWEST POSITION AND CALL LIGHT WITHIN REACH. THIS RN WILL REPORT TO ONCOMING DAYSHIFT RN.
[2025-05-18 06:12] LABS: Anion Gap 5.0 mmol/L (3-11); Blood Urea Nitrogen 14.0 mg/dL (8-24); CO2, Blood 32.0 mmol/L (21-32); Calcium, Blood 9.3 mg/dL (8.5-10.1); Chloride, Blood 107.0 mmol/L (98-108); Creatinine, Blood 0.65 mg/dL (0.60-1.20); Glucose, Blood 107.0 mg/dL (70-99); Potassium, Blood 3.9 mmol/L (3.5-5.5); Sodium, Blood 140.0 mmol/L (136-145)
[2025-05-18 07:21] VITALS: BP 137/77
[2025-05-18] MEDS ORDERED: SPIR25 PO (10:47)
[2025-05-18] MEDS ORDERED: VISBIOME 112.51 EACH PO (10:47)
[2025-05-18] MEDS ORDERED: CIPR500 PO (10:48)
[2025-05-18] MEDS ORDERED: OMEPRAZOLE MAGN20 MG PO (10:49)
[2025-05-18 12:14] VITALS: BP 120/69
--- NOTE | 2025-05-18 14:57 | NUR ---
SHIFT SUMMARY/DISCHARGE PATIENT WAS A0X 2-3. SBP 137-120 MAP >65. HR 80-90'S NSR. O2 SATS >95% ON 1L NC. TRIED PATIENT ON RA, DESAT TO 88% BACK ON O2 1L. PATIENT IS DIURESING AND IS 1 ONE PERSON SBA W FWW. DENIES CHEST PAIN/PRESSURE/SOB. REPOSITIONED PATIENT IN BED. PATIENT CAN BE IMPULSIVE AND FORGETFULL, BED ALARM IN PLACE, HOWEVER HAS BEEN USING CALL LIGHT APPROPRIATELYY. PATIENT HAD PT TODAY, EXERCISE BAND FOR UPPER BODY IN ROOM. DISHCARGE ORDERS PLACED BY PROVIDER. TRANSFER TO [facility]. PATIENT WAS EDUCATED ON DISCHARGE, CONDITION, MEDICATIONS AND FOLLOW UP APPOINTMENTS. PATIENT WAS TRANSPORTED BY [facility] TO [facility]. [facility] WAS NOTIFIED AND REPORT WAS GIVEN.
== END 2025-05-18 13:00 | DRG 871 ==
LOC: ER 09:37 → ICUE 12:07 → PCU 12:07 → ICUE 12:45 → PCU 05-17 05:20
PROVIDERS: Emergency Medicine; Internal Medicine; Student in an Organized Health Care Education/Training Program; ADMIT Internal Medicine
PROC: 3E043XZ Introduction of Vasopressor into Central Vein, Percutaneous Approach (ICD-10-PCS; principal; 2025-05-12)
PROC: 02HV33Z Insertion of Infusion Device into Superior Vena Cava, Percutaneous Approach (ICD-10-PCS; 2025-05-12)
PROC: B548ZZA Ultrasonography of Superior Vena Cava, Guidance (ICD-10-PCS; 2025-05-12)
PROC: 3E03329 Introduction of Other Anti-infective into Peripheral Vein, Percutaneous Approach (ICD-10-PCS; 2025-05-12)
PROC: 30233J1 Transfusion of Nonautologous Serum Albumin into Peripheral Vein, Percutaneous Approach (ICD-10-PCS; 2025-05-12)
PROC: 3E02340 Introduction of Influenza Vaccine into Muscle, Percutaneous Approach (ICD-10-PCS; 2025-05-12)
PROC: 5A09357 Assistance with Respiratory Ventilation, Less than 24 Consecutive Hours, Continuous Positive Airway Pressure (ICD-10-PCS; 2025-05-15)
DX: A41.51 Sepsis due to Escherichia coli [E. coli] (principal); I21.A1 Myocardial infarction type 2; J18.9 Pneumonia, unspecified organism; R65.21 Severe sepsis with septic shock; I50.32 Chronic diastolic (congestive) heart failure; E87.1 Hypo-osmolality and hyponatremia; N12 Tubulo-interstitial nephritis, not specified as acute or chronic; N17.9 Acute kidney failure, unspecified; E87.4 Mixed disorder of acid-base balance; K70.30 Alcoholic cirrhosis of liver without ascites; R09.02 Hypoxemia; I48.0 Paroxysmal atrial fibrillation; G47.33 Obstructive sleep apnea (adult) (pediatric); D69.6 Thrombocytopenia, unspecified; T36.1X5A Adverse effect of cephalosporins and other beta-lactam antibiotics, initial encounter; I44.7 Left bundle-branch block, unspecified; Z99.81 Dependence on supplemental oxygen; Z86.14 Personal history of Methicillin resistant Staphylococcus aureus infection; Z79.899 Other long term (current) drug therapy; Z87.19 Personal history of other diseases of the digestive system; Z98.890 Other specified postprocedural states; Z23 Encounter for immunization
CPT/HCPCS: 36415; 51702; 71045; 74177; 80048; 80053; 80076; 80162; 81001; 82140; 82330; 82803; 83605; 83735; 84100; 84484; 85025; 85610; 85730; 87040; 87077; 87186; 87637; 93005; 93010; 93306; 94640; 94660; 94664; 94762; 96361; 96365; 96367; 97110; 97116; 97162; 97165; 97530; 97535; 99291-25; A9270; C1751; J0282; J0696; J1160; J1650; J1885; J1938; J2760; J3373; J3411; J3475; J7030; J7040; J7050; J7060; P9047; Q9967